=== PATIENT | female | born 1960 | race African-American/Black ===

== ENCOUNTER 2018-06-20 10:49 | Outpatient (CLI) | payer MEDICARE ==
--- NOTE | 2018-06-20 12:52 | CT ---
CT CERVICAL SPINE: Multiple axial tomograms are obtained through the cervical spine with multiplanar reconstruction. INDICATION: Neck pain. Cervical spondylosis. Pain to both shoulders. FINDINGS: There are moderately severe degenerative changes throughout the cervical spine below the C3 level. T here is anterior wedging of C3, C4, C5, and C6 vertebrae with prominent anterior osteophytes. Loss o f disk space throughout the cervical levels with vacuum phenomenon seen at several disk levels. Ther e is a gas pocket seen anteriorly at C3-4 indicating protrusion anteriorly from the disk space. At the C3-4 level posteriorly, there is a mild posterior listhesis of C3 on C4 with prominent posteri or spondylosis compressing and flattening the cord. Bilateral foraminal narrowing due to hypertrophi c change. At C4-5, prominent posterior bony spondylosis severely compresses the cord. There is severe central canal stenosis and cord compression at this level. Mild bilateral foraminal narrowing. At C5-6, there is abnormal bony spondylosis along the posterior border of the C5 vertebra with cot assembler ior spondylosis of the C5-6 disk. This bony spur posterior to the C5 vertebra compresses the anterio r cord. At the C5-6 disk level, disk bulge and spondylosis compress the cord with prominent spur bethanie trally. Bilateral foraminal narrowing. At C6-7, bony spondylosis compresses the cord. Bilateral foraminal narrowing more severe on the left . At C7-T1, mild spondylosis. IMPRESSION: Severe degenerative changes of the cervical spine with posterior bony spondylosis compressing the cor d at C3-4, C4-5, C5-6, and C6-7 levels. Findings appear most severe at the C4-5 level with severe co rd compression. POS: [facility]IGO
== END 2018-06-20 10:50 | disposition home or self-care (01) ==
LOC: TBSIIMAG 10:49
PROVIDERS: ATTEND Neurological Surgery
DX: M47.812 Spondylosis without myelopathy or radiculopathy, cervical region (principal); G95.20 Unspecified cord compression
CPT/HCPCS: 72125

== ENCOUNTER 2018-07-07 20:33 | Inpatient (IN) | payer MEDICARE ==
[2018-07-07] MEDS ORDERED: Milk Of Magnesia 30 ML UDCUP PO PRN (21:44)
[2018-07-07] MEDS ORDERED: traMADol HCl 50 MG TAB PO PRN (21:44)
[2018-07-07] MEDS ORDERED: Promethazine 25 MG TAB PO PRN (21:44)
[2018-07-07] MEDS ORDERED: diphenhydrAMINE 50 MG/ML VIAL IVP PRN (21:44)
[2018-07-07] MEDS ORDERED: Meperidine HCl/PF 25 MG/ML VIAL SLOW IVP PRN (21:44)
[2018-07-07] MEDS ORDERED: Cyclobenzaprine 10 MG TAB PO PRN (21:44)
[2018-07-07] MEDS ORDERED: Ondansetron PF 4 MG/2 ML Vial IVP PRN (21:44)
[2018-07-07] MEDS ORDERED: tiZANidine HCl 4 MG TAB PO PRN (21:44)
[2018-07-07] MEDS ORDERED: HYDROcodone/Acetaminophen 10/325 mg Tablet PO PRN (21:44)
[2018-07-07] MEDS ORDERED: Mag-Al 1200 mg/1200 mg/30 ML UDCUP PO PRN (21:44)
[2018-07-07 22:00] LABS: #Lymphocytes 2.4 thou/uL (1.20-3.40); #Monocytes 0.1 thou/uL (0.11-0.59); #Neutrophils 5.1 thou/uL (1.40-6.50); %Basophils 0.1 % (0.0-1.0); %Eosinophils 0.2 % (0.0-10.0); %Lymphocytes 31.3 % (21.0-51.0); %Monocytes 0.6 % (0.0-10.0); %Neutrophils 67.8 % (42.0-75.0); Hemoglobin 14.5 g/dL (12.0-16.0); Mean Corpuscular Hemoglobin 31.2 pg (27.0-31.0); Mean Corpuscular Volume 91.9 fL (78.0-98.0); Platelet Count 366 thou/uL (130-400); RBC Distribution Width 12.2 % (11.5-14.5); Red Blood Cell (RBC) Count 4.65 mill/uL (4.20-5.40); White Blood Cell (WBC) Count 7.6 thou/uL (4.8-10.8)
[2018-07-07 22:05] LABS: PTT 28.6 SEC (22.9-36.1); Prothrombin Time 13.5 SEC (12.0-14.7)
[2018-07-07 22:19] LABS: ALT (SGPT) 12 U/L (8-55); AST (SGOT) 15 U/L (5-34); Albumin 4.4 g/dL (3.5-5.0); Alkaline Phosphatase 78 U/L (40-150); Anion Gap 13 mmol/L (10-20); BUN (Urea Nitrogen) 9 mg/dL (9.8-20.1); Bilirubin, Total 0.3 mg/dL (0.2-1.2); Calc. Creatinine Clearance 0 mL/min (70-130); Calcium 9.9 mg/dL (7.8-10.44); Carbon Dioxide 26 mmol/L (22-29); Chloride 104 mmol/L (98-107); Estimated GFR-MDRD 78; Glucose 159 mg/dL (70-105); Potassium 3.3 mmol/L (3.5-5.1); Protein, Total 8.4 g/dL (6.0-8.3); Sodium 140 mmol/L (136-145)
[2018-07-07] MEDS ORDERED: Lorazepam 2 MG/ML VIAL ONE (22:20)
[2018-07-07 22:53] LABS: Bilirubin Negative (Negative); Blood, Urine Small (Negative); Clarity CLEAR (Clear); Glucose, Urine (Dipstick) Negative (Negative); Leukocyte Negative (Negative); Nitrite Negative (Negative); Protein, Urine (Dipstick) 100 mg/dL (Neg-Trace); Specific Gravity, Urine 1.012 (1.002-1.036)
[2018-07-07 22:56] LABS: Bacteria/HPF None Seen HPF (None Seen); Hyaline Casts/LPF 0-3 HYALINE CAST LPF (0-3 Hyaline); Pathc Cast-AUWi Flag 0.58 (0-2.49); Squamous Epithelial 0-3 HPF (0-3); WBC/HPF 0-3 HPF (0-3)
[2018-07-07 23:05] LABS: Yeast-All Forms 1+ HPF (None Seen)
--- NOTE | 2018-07-08 | MRI ---
MRI CERVICAL SPINE WITHOUT CONTRAST: History: Cervical stenosis. Comparison: None. Correlation: CT cervical spine 06-20-18. FINDINGS: Appropriate T1 marrow signal intensity of the cervical vertebra. Cervical spine vertebral body height is maintained. There is no fracture. Minimal STIR hyperintensity involving the left aspect of C4, li shubham representing mild edema from degenerative change. There is 3.2 mm of anterolisthesis of C2 upon C3. Slight reversal of the cervical lordosis at C3-4 and C4-5. Visualized brain parenchyma is unremarkable. There is subtle T2 and STIR hyperintensity involving the cervical cord at C3, C4, and C5. C2-3: Central disc osteophyte complex. Mild central canal stenosis. Mild bilateral foraminal narrowin g. C3-4: Broad based disc osteophyte complex. Severe central canal stenosis. Moderate to severe bilatera l foraminal narrowing. C4-5: Broad based disc osteophyte complex. Severe central canal stenosis. Moderate bilateral foramina l narrowing. C5-6: Broad based disc osteophyte complex. Moderate to severe central canal stenosis. Moderate to sev ere bilateral foraminal narrowing. C6-7: Broad based disc osteophyte complex. Moderate central canal stenosis. Moderate bilateral forami nal narrowing. C7-T1: No significant central canal stenosis. Mild bilateral foraminal narrowing. IMPRESSION: Severe central canal stenosis as well as moderately severe central canal stenosis involving the cervi albert spine as described above. There is significant mass effect and deformity of the cervical cord at C3-4, C4-5, C5-6 and to a lesser extent, C6-7. Abnormal signal intensity in the cord at C3-4, C4-5, C 5-6. Findings are presumed to be the malacic change of the cord. POS: NABIL
--- NOTE | 2018-07-08 00:13 | HP ---
ADDITIONAL ATTENDING PHYSICIAN: Brandon Chatman MD HISTORY OF PRESENT ILLNESS: The patient is a 58-year-old female with a past medical history of hypertension, hyperlipidemia, type 2 diabetes, asthma, anxiety, who is known to the Neurosurgical Service for recent evaluation for cervical myelopathy and found to have significant cervical stenosis from C3-C5 by Dr. Felipe and Brandon Lewis. They had planned for surgical decompression at C3-C5 on 07/22/2017, however, the patient reported that she had new episodes of incontinence which prompted her assessment at the [facility] this evening. The patient reports over the last few days, she has had several episodes of urinary incontinence. She reports she feels the need to go, but is unable to hold it for longer than a few seconds. She is still ambulating with a walker throughout her home. With regard to her other symptoms, the patient has had progressive numbness, tingling, dysesthesias to the arms and legs, arms greater than legs for the past year. She has also had progressive decline in the functional use of her hands bilaterally. She has had frequent falls and is essentially using a walker at all times for ambulation. The patient was transferred from [facility] for these symptoms and new symptoms of incontinence. She denies any bowel incontinence. PAST MEDICAL HISTORY: Hypertension, hyperlipidemia, type 2 diabetes, asthma, anxiety. PAST SURGICAL HISTORY: Colonoscopy, left knee replacement, tubal ligation, x2, cholecystectomy. ALLERGIES: THE PATIENT IS ALLERGIC TO PENICILLIN. SOCIAL HISTORY: She is a former smoker. She does not currently smoke, drink, or use any drugs. PHYSICAL EXAMINATION: VITAL SIGNS: BP is 161/80, pulse 54, respiration rate is 21. She is 100% on room air. CONSTITUTIONAL: Awake, alert, no acute distress. HEENT: Head, normocephalic, atraumatic. Eyes, PERRLA. Extraocular movements intact. ENT; oral mucosa is pink, intact and moist. The patient has normal voice. NECK: Nontender to palpation. Free active range of motion. No meningismus or nuchal rigidity. CARDIAC: Regular rate and rhythm. RESPIRATORY: Symmetric chest expansion. No evidence of dyspnea. MUSCULOSKELETAL: She has good muscle tone to bilateral upper extremities. She does have some weakness to bilateral sales property manager. She has 5/5 strength in the remainder of the extremities during my exam in the bed. She is hyperreflexive of both the triceps, biceps, knee and ankle jerk reflex. Positive Hernández's. Positive on sustained clonus. NEUROLOGIC: A and O x4. The patient does have slight weakness to bilateral sales property manager strength in the hands, 4-/5. I did not attempt to ambulate the patient considering her fall risk. ASSESSMENT AND PLAN: This is a 58-year-old female, known to Neurosurgery for recent evaluation for cervical stenosis with cervical myelopathy with new symptoms of urinary incontinence. She was transferred to our facility for further management of progression of these symptoms. I will plan to evaluate the symptoms further with new MRI of the cervical and lumbar spine without contrast. She has also been treated with 10 mg of Decadron prior to arrival and will continue Decadron 4 mg q.6h. Considering her additional underlying medical issues including hypertension, hyperlipidemia and diabetes, we will ask Medical Service to assist with medical management. I have discussed this plan with Dr. Chatman, who is in agreement, and he will also see the patient. Job ID: [id number] [facility]
[2018-07-08] MEDS ORDERED: HYDROcodone/Acetaminophen 7.5/325 mg Tablet ONE (00:18)
[2018-07-08] MEDS: Sodium Chloride 0.9% 1,000 ML IV SCH ×2 (02:47→17:23)
[2018-07-08] MEDS: Dexamethasone 4 mg/ml Vial SLOW IVP SCH ×3 (02:47→06:55)
[2018-07-08 04:08] VITALS: BMI 42.1
[2018-07-08] MEDS ORDERED: HYDROcodone/Acetaminophen 10/325 mg Tablet PO PRN (07:29)
[2018-07-08] MEDS ORDERED: Loratadine 10 MG TAB PO PRN (07:30)
[2018-07-08] MEDS ORDERED: Artificial Tears 18 DROP/0.9 ML EA EYE PRN (07:30)
[2018-07-08] MEDS ORDERED: Senokot S 8.6-50 MG TAB PO PRN (07:30)
[2018-07-08] MEDS ORDERED: Zolpidem Tartrate 5 MG TAB PO PRN (07:30)
[2018-07-08] MEDS ORDERED: Eucerin (Mineral Oil/Petrolatum,White) 30 gm Jar TOP PRN (07:30)
[2018-07-08] MEDS ORDERED: Dextrose 50% Abboject 50 ML SYRINGE SLOW IVP PRN (07:30)
[2018-07-08] MEDS ORDERED: Dextrose 5% in Water 1,000 ML IV PRN (07:30)
[2018-07-08] MEDS ORDERED: Bisacodyl 10 MG SUPP PR PRN (07:30)
[2018-07-08] MEDS ORDERED: HumaLOG 300 UNITS/3 ML VIAL SC PRN ×2 (07:30)
[2018-07-08] MEDS ORDERED: Acetaminophen 500 MG TAB PO PRN (07:30)
[2018-07-08] MEDS ORDERED: Cepastat Lozenges 1 LOZ PO PRN (07:30)
[2018-07-08] MEDS ORDERED: Loperamide HCl 2 MG CAP PO PRN (07:30)
[2018-07-08] MEDS ORDERED: Calcium Carbonate 500 MG ChewTAB PO PRN (07:30)
[2018-07-08] MEDS ORDERED: Diabetic Tussin 200 MG/10 ML UDCUP PO PRN (07:30)
[2018-07-08] MEDS ORDERED: hydrALAZINE 20 MG/ML VIAL SLOW IVP PRN (07:30)
[2018-07-08] MEDS ORDERED: Labetalol HCl 100 MG/20 ML VIAL SLOW IVP PRN (07:30)
[2018-07-08] MEDS ORDERED: Sodium Chloride 0.65% Nasal 44 ML BOT EA NARE PRN (07:30)
--- NOTE | 2018-07-08 08:02 | MRI ---
MRI LUMBAR SPINE WITHOUT CONTRAST: HISTORY: The patient fell 2 days ago. Pain and weakness. COMPARISON: None. FINDINGS: Appropriate T1 marrow signal intensity of the lumbar vertebrae. Lumbar spine vertebral body height i s maintained and there is no fracture. No significant STIR hyperintensity to suggest vertebral body edema or ligamentous injury. There is nonspecific edema involving the midline dorsal subcutaneous fat. Symmetric signal intensity of the psoas muscles. Exophytic T2 hyperintense lesion emanating from the left renal cortex measuring 2 cm likely represents a cyst. Conus medullaris terminates at the T12-L1 disk space level. T12-L1: Adequate disk hydration. No significant central canal stenosis or foraminal narrowing. L1-L2: Adequate disk hydration. No significant central canal stenosis or foraminal narrowing. L2-L3: Adequate disk hydration. No significant central canal stenosis or foraminal narrowing. L3-L4: Desiccation with mild loss of disk space height. Generalized disk bulge, ligamentum flavum t hickening, and facet hypertrophy result in mild central canal stenosis. There is a small amount of f luid in both facet joints. Right neural foramen is patent. Mild left neural foraminal narrowing. L4-L5: Desiccation with mild loss of disk space height. Generalized disk bulge, ligamentum flavum t hickening, and facet hypertrophy result in moderate to severe central canal stenosis. There is fluid in both facet joints. Moderate to severe bilateral neural foraminal narrowing. L5-S1: Desiccation with moderate loss of disk space height. Moderate disk bulge, ligamentum flavum thickening, and facet hypertrophy result in mild to moderate central canal stenosis. There is narrow ing of both subarticular zones with obscuration of bilateral traversing S1 nerve roots. There is ayana ateral facet hypertrophy. Moderate to severe bilateral foraminal narrowing. IMPRESSION: 1. No evidence of fracture. 2. Degenerative change of the lumbar spine as detailed above. POS: [facility]
[2018-07-08] MEDS: Hydrochlorothiazide 25 MG TAB PO SCH (09:14)
[2018-07-08] MEDS: Citalopram 20 MG TAB PO SCH (09:14)
[2018-07-08] MEDS: metFORMIN XR 500 MG TAB PO SCH ×2 (09:15→17:23)
[2018-07-08] MEDS: HYDROcodone/Acetaminophen 10/325 mg Tablet PO PRN ×3 (09:21→21:23)
[2018-07-08] MEDS: ALPRAZolam 1 MG TAB PO PRN ×2 (09:24→21:23)
--- NOTE | 2018-07-08 11:06 | PDOC.PN ---
- Subjective Encounter Start Date: 07/08/18 Encounter Start Time: 07:50 Patient seen and examined. No new complaints. No overnight events - Objective Resuscitation Status - Order Detail: 07/08/18 08:08 Resuscitation Status Routine Resuscitation Status: FULL: Full Resuscitation MAR Reviewed: Yes Vital Signs & Weight: Vital Signs (12 hours) Temp Pulse Resp BP BP Pulse Ox 07/08/18 09:14 62 150/82 H 07/08/18 09:13 150/82 H 07/08/18 08:05 99.9 F H 62 18 150/82 H 95 07/08/18 07:00 98 07/08/18 01:50 98.1 F 69 20 177/71 H 98 Weight Weight 253 lb 6 oz I&O: 07/07/18 07/08/18 07/09/18 06:59 06:59 06:59 Intake Total 540 Balance 540 Result Diagrams: 07/07/18 21:42 07/07/18 21:42 Additional Labs: Accuchecks 07/08/18 06:55 POC Glucose 155 H Radiology Reviewed by me: Yes (MRI cervical and lumba spine noted) Phys Exam - Physical Examination Constitutional: NAD HEENT: PERRLA, moist MMs, sclera anicteric Neck: no JVD, supple Respiratory: no wheezing, no rales, no rhonchi Cardiovascular: RRR, no significant murmur, no rub Gastrointestinal: soft, non-tender, no distention, positive bowel sounds Musculoskeletal: no edema, pulses present Neurological: non-focal, normal sensation Lymphatic: no nodes Psychiatric: normal affect, A&O x 3 Skin: no rash, normal turgor Dx/Plan (1) Cervical myelopathy with cervical radiculopathy Code(s): M47.12 - OTHER SPONDYLOSIS WITH MYELOPATHY, CERVICAL REGION Status: Acute (2) Hypokalemia Code(s): E87.6 - HYPOKALEMIA Status: Acute (3) Anxiety and depression Code(s): F41.9 - ANXIETY DISORDER, UNSPECIFIED; F32.9 - MAJOR DEPRESSIVE DISORDER, SINGLE EPISODE, UNSPECIFIED Status: Chronic (4) Diabetes type 2, controlled Code(s): E11.9 - TYPE 2 DIABETES MELLITUS WITHOUT COMPLICATIONS Status: Chronic (5) Dyslipidemia Code(s): E78.5 - HYPERLIPIDEMIA, UNSPECIFIED Status: Chronic (6) HTN (hypertension) Code(s): I10 - ESSENTIAL (PRIMARY) HYPERTENSION Status: Chronic Qualifiers: (7) Morbid obesity with BMI of 40.0-44.9, adult Code(s): E66.01 - MORBID (SEVERE) OBESITY DUE TO EXCESS CALORIES; Z68.41 - BODY MASS INDEX (BMI) 40.0-44.9, ADULT Status: Chronic - Plan cont current plan of care, plan discussed w/ family, PT/OT * medication reviewed as below * symptomatic treatment * code status- full code * home medication reconciled * may need surgery for cervical stenosis * discussed with family * replace potassium * will follow * at this point medically stable. Review of Systems - Review of Systems Eyes: negative: Pain, Vision Change, Conjunctivae Inflammation, Eyelid Inflammation, Redness, Other ENT: negative: Ear Pain, Ear Discharge, Nose Pain, Nose Discharge, Nose Congestion, Mouth Pain, Mouth Swelling, Throat Pain, Throat Swelling, Other Respiratory: negative: Cough, Dry, Shortness of Breath, Hemoptysis, SOB with Excertion, Pleuritic Pain, Sputum, Wheezing Cardiovascular: negative: chest pain, palpitations, orthopnea, paroxysmal nocturnal dyspnea, edema, light headedness, other Gastrointestinal: negative: Nausea, Vomiting, Abdominal Pain, Diarrhea, Constipation, Melena, Hematochezia, Other Genitourinary: negative: Dysuria, Frequency, Incontinence, Hematuria, Retention , Other Musculoskeletal: Neck Pain. negative: Shoulder Pain, Arm Pain, Back Pain, Hand Pain, Leg Pain, Foot Pain, Other Skin: negative: Rash, Lesions, Chava, Bruising, Other - Medications/Allergies Allergies/Adverse Reactions: Allergies Allergy/AdvReac Type Severity Reaction Status Date / Time Penicillins Allergy Verified 01/23/17 12:30 Medications: Current Medications Acetaminophen (Tylenol) 500 mg PO Q6H PRN PRN Reason: Mild Pain (1-3) Hydrocodone Bitart/Acetaminophen ([place] 10/325) 1 tab PO Q4H PRN PRN Reason: Mild Pain (1-3) Last Admin: 07/08/18 09:21 Dose: 1 tab Hydrocodone Bitart/Acetaminophen ([place] 10/325) 2 tab PO Q4H PRN PRN Reason: Moderate Pain (4-6) Alprazolam (Xanax) 1 mg PO TIDPRN PRN PRN Reason: Anxiety Last Admin: 07/08/18 09:24 Dose: 1 mg Artificial Tears (Tears Naturale) 2 drop EA EYE PRN PRN PRN Reason: Dry Eyes Atorvastatin Calcium (Lipitor) 10 mg PO [facility] Benazepril HCl (Lotensin) 40 [facility] Last Admin: 07/08/18 09:13 Dose: 40 mg Bisacodyl (Dulcolax) 10 mg RI DAILYPRN PRN PRN Reason: Constipation Calcium Carbonate (Tums) 1,000 mg PO Q4H PRN PRN Reason: Heartburn or Indigestion Citalopram Hydrobromide (Celexa) 40 mg PO [facility] Last Admin: 07/08/18 09:14 Dose: 40 mg Clonidine (Catapres) 0.3 mg PO [facility] Cyclobenzaprine HCl (Flexeril) 10 mg PO Q8H PRN PRN Reason: Muscle Spasm Dextrose/Water (Dextrose 50%) 25 gm SLOW IVP PRN PRN PRN Reason: Hypoglycemia Diltiazem HCl (Cardizem Cd) 120 mg PO TID [facility] Last Admin: 07/08/18 09:14 Dose: 120 mg Diphenhydramine HCl (Benadryl) 25 mg IVP Q6H PRN PRN Reason: Itching Glucagon (Glucagon) 1 mg IM PRN PRN PRN Reason: Hypoglycemia Guaifenesin (Robitussin Sf) 200 mg PO Q4H PRN PRN Reason: Cough Hydralazine HCl (Apresoline) 10 mg SLOW IVP Q4H PRN PRN Reason: SBP > 180 and HR < 70 Hydrochlorothiazide (Hydrochlorothiazide) 25 mg PO [facility] Last Admin: 07/08/18 09:14 Dose: 25 mg Sodium Chloride (Normal Saline 0.9%) 1,000 mls @ 75 mls/hr IV .[id number] [facility] Last Admin: 07/08/18 02:47 Dose: 1,000 mls Dextrose/Water (D5w) 1,000 mls @ 0 mls/hr IV .Q0M PRN PRN Reason: Hypoglycemia Insulin Human Lispro (Humalog) 0 units SC .MODERATE SLIDING SC PRN PRN Reason: Moderate Correctional Scale Insulin Human Lispro (Humalog) 0 units SC .BEDTIME SLIDING SC PRN PRN Reason: Bedtime Correctional Scale Labetalol HCl (Normodyne) 20 mg SLOW IVP Q4H PRN PRN Reason: SBP > 180 and HR >/= 70 Loperamide HCl (Imodium) 2 mg PO PRN PRN PRN Reason: Diarrhea/Loose Stools Loratadine (Claritin) 10 mg PO DAILYPRN PRN PRN Reason: Sinus Symptoms Meperidine HCl (Demerol) 25 mg SLOW IVP Q2H PRN PRN Reason: Moderate Breakthrough Pain Metformin HCl (Glucophage Xr) 500 mg PO [facility]ID[facility] Last Admin: 07/08/18 09:15 Dose: 500 mg Mineral Oil/White Petrolatum (Eucerin Cream) 0 gm TOP BIDPRN PRN PRN Reason: Dry Skin Ondansetron HCl (Zofran) 4 mg IVP Q6H PRN PRN Reason: Nausea Promethazine HCl (Phenergan) 12.5 mg PO Q4H PRN PRN Reason: Nausea/Vomiting Senna/Docusate Sodium (Senokot S) 2 tab PO BID PRN PRN Reason: Constipation Sodium Chloride (Flush - Normal Saline) 10 ml IVF PRN PRN PRN Reason: Saline Flush Sodium Chloride ([employer] 0.65%) 0 ml EA NARE QIDPRN PRN PRN Reason: Nasal Congestion Throat Lozenges (Cepastat Lozenges) 1 evonne PO Q2H PRN PRN Reason: Sore Throat Tizanidine HCl (Zanaflex) 4 mg PO Q6H PRN PRN Reason: Muscle Spasm Zolpidem Tartrate (Ambien) 5 mg PO HSPRN PRN PRN Reason: Insomnia
[2018-07-08] MEDS ORDERED: Potassium Chloride 20 MEQ TAB PO SCH (11:15)
--- NOTE | 2018-07-08 16:31 | PRG ---
DATE OF SERVICE: 07/08/2018 SUBJECTIVE: The patient is seen and examined. I agree with Isabel Camejo's evaluation on 07/07/2018. The patient is a 58-year-old woman, who has seen Dr. Felipe this month for cervical myelopathy that has been progressive. He had planned on cervical decompression on the 22 of July. The patient was stable at home, but had feelings of urinary frequency and urgency, and this ultimately prompted emergency room evaluation in her hometown and then transferred here. Based on her physical exam and current history, there does not appear to be any meaningful neurologic change in her condition. The urinary issues have resolved and I think they are more explained by her poor ambulation. We did repeat an MRI scan, which again confirmed the severe spinal cord compression between C3 and C6. IMPRESSION AND PLAN: The patient certainly has progressive and severe cervical myelopathy and cervical stenosis that will require surgical decompression. I am not convinced there has been any acute or dramatic change, but the patient is quite anxious about the situation and wants to expedite surgical management. It is my opinion that surgical decompression would best be accomplished by anterior and posterior decompression and stabilization from C3 through C6 and I discussed the indication, risks, benefits, alternatives of the procedure with the patient and with her sister via telephone. They expressed understanding and wished to proceed. We will work to coordinate timing, which will undoubtedly be somewhat delayed given the holiday week. Job ID: [id number]
[2018-07-08] MEDS ORDERED: Atorvastatin Calcium 10 MG TAB PO SCH (21:00)
[2018-07-08] MEDS ORDERED: cloNIDine 0.3 MG TAB PO SCH (21:00)
[2018-07-09 08:48] VITALS: BP 177/81; TEMP 98
--- NOTE | 2018-07-09 08:50 | DIS ---
DATE OF ADMISSION: 07/07/2018 DATE OF DISCHARGE: 07/09/2018 HOSPITAL COURSE: The patient is a 58-year-old female, recently evaluated by Neurosurgery for cervical stenosis and cervical myopathy, most pronounced from C3 through C6. She was transferred to our facility for concern for worsening of her cervical myelopathy with neurologic change. She was evaluated by us at [facility] with repeat MRIs and as well as treated initially with steroids. Dr. Chatman also assessed the patient, felt that her new symptoms of urinary urgency did not recommend any acute neurologic change. She remains able to ambulate with short distances with her walker. I am visiting with patient this morning at bedside. She is awake, alert, in no acute distress. She has free active range of motion of all extremities. 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 We will plan to dismiss the patient to home. We will arrange out for the patient C3-C6 anterior-posterior decompression and fusion, likely planned for 07/15/2018. I have provided the patient with scripts for Tylenol No. 3 and Zanaflex to take as needed. We will call her to arrange for the surgical intervention. Job ID: [id number]
[2018-07-09] MEDS: Citalopram 20 MG TAB PO SCH (09:10)
[2018-07-09] MEDS: Hydrochlorothiazide 25 MG TAB PO SCH (09:11)
[2018-07-09] MEDS: metFORMIN XR 500 MG TAB PO SCH (09:12)
[2018-07-09] MEDS: HYDROcodone/Acetaminophen 10/325 mg Tablet PO PRN (09:12)
[2018-07-09] MEDS: ALPRAZolam 1 MG TAB PO PRN (09:19)
--- NOTE | 2018-07-09 09:32 | PDOC.PN ---
- Subjective Encounter Start Date: 07/09/18 Encounter Start Time: 07:50 -: old records requested/rev Patient seen and examined. No new complaints. No overnight events - Objective Resuscitation Status - Order Detail: 07/08/18 08:08 Resuscitation Status Routine Resuscitation Status: FULL: Full Resuscitation MAR Reviewed: Yes Vital Signs & Weight: Vital Signs (12 hours) Temp Pulse Resp BP BP Pulse Ox 07/09/18 09:11 53 L 177/81 H 07/09/18 09:10 177/82 H 07/09/18 08:02 98 F 53 L 22 H 177/81 H 98 07/09/18 08:00 98 07/09/18 04:39 98.1 F 91 18 146/105 H 97 07/09/18 00:29 98.1 F 56 L 18 181/77 H 93 L Weight Weight 253 lb 6 oz I&O: 07/08/18 07/09/18 07/10/18 06:59 06:59 06:59 Intake Total 1630 Balance 1630 Result Diagrams: 07/07/18 21:42 07/07/18 21:42 Additional Labs: Accuchecks 07/09/18 07/08/18 07/08/18 05:31 21:20 15:37 POC Glucose 144 H 170 H 214 H 07/08/18 11:33 POC Glucose 224 H Phys Exam - Physical Examination Constitutional: NAD HEENT: PERRLA, moist MMs, sclera anicteric Neck: no JVD, supple Respiratory: no wheezing, no rales, no rhonchi Cardiovascular: RRR, no significant murmur, no rub Gastrointestinal: soft, non-tender, no distention, positive bowel sounds Musculoskeletal: no edema, pulses present Neurological: non-focal, normal sensation, moves all 4 limbs Lymphatic: no nodes Psychiatric: normal affect, A&O x 3 Skin: no rash, normal turgor Dx/Plan (1) Cervical myelopathy with cervical radiculopathy Code(s): M47.12 - OTHER SPONDYLOSIS WITH MYELOPATHY, CERVICAL REGION Status: Acute (2) Hypokalemia Code(s): E87.6 - HYPOKALEMIA Status: Acute (3) Anxiety and depression Code(s): F41.9 - ANXIETY DISORDER, UNSPECIFIED; F32.9 - MAJOR DEPRESSIVE DISORDER, SINGLE EPISODE, UNSPECIFIED Status: Chronic (4) Diabetes type 2, controlled Code(s): E11.9 - TYPE 2 DIABETES MELLITUS WITHOUT COMPLICATIONS Status: Chronic (5) Dyslipidemia Code(s): E78.5 - HYPERLIPIDEMIA, UNSPECIFIED Status: Chronic (6) HTN (hypertension) Code(s): I10 - ESSENTIAL (PRIMARY) HYPERTENSION Status: Chronic Qualifiers: (7) Morbid obesity with BMI of 40.0-44.9, adult Code(s): E66.01 - MORBID (SEVERE) OBESITY DUE TO EXCESS CALORIES; Z68.41 - BODY MASS INDEX (BMI) 40.0-44.9, ADULT Status: Chronic - Plan cont current plan of care * medication reviewed as below * symptomatic treatment * plan for discharge and outpt elective admission for surgery * medically stable * will sign off. Review of Systems - Review of Systems Constitutional: negative: fever, chills, sweats, weakness, malaise, other Eyes: negative: Pain, Vision Change, Conjunctivae Inflammation, Eyelid Inflammation, Redness, Other ENT: negative: Ear Pain, Ear Discharge, Nose Pain, Nose Discharge, Nose Congestion, Mouth Pain, Mouth Swelling, Throat Pain, Throat Swelling, Other Respiratory: negative: Cough, Dry, Shortness of Breath, Hemoptysis, SOB with Excertion, Pleuritic Pain, Sputum, Wheezing Cardiovascular: negative: chest pain, palpitations, orthopnea, paroxysmal nocturnal dyspnea, edema, light headedness, other Gastrointestinal: negative: Nausea, Vomiting, Abdominal Pain, Diarrhea, Constipation, Melena, Hematochezia, Other Genitourinary: negative: Dysuria, Frequency, Incontinence, Hematuria, Retention , Other Musculoskeletal: negative: Neck Pain, Shoulder Pain, Arm Pain, Back Pain, Hand Pain, Leg Pain, Foot Pain, Other Skin: negative: Rash, Lesions, Chava, Bruising, Other Neurological: negative: Weakness, Numbness, Incoordination, Change in Speech, Confusion, Seizures, Other - Medications/Allergies Allergies/Adverse Reactions: Allergies Allergy/AdvReac Type Severity Reaction Status Date / Time Penicillins Allergy Verified 01/23/17 12:30 Medications: Current Medications Acetaminophen (Tylenol) 500 mg PO Q6H PRN PRN Reason: Mild Pain (1-3) Hydrocodone Bitart/Acetaminophen ([place] 10/325) 1 tab PO Q4H PRN PRN Reason: Mild Pain (1-3) Last Admin: 07/09/18 09:12 Dose: 1 tab Hydrocodone Bitart/Acetaminophen ([place] 10/325) 2 tab PO Q4H PRN PRN Reason: Moderate Pain (4-6) Alprazolam (Xanax) 1 mg PO TIDPRN PRN PRN Reason: Anxiety Last Admin: 07/09/18 09:19 Dose: 1 mg Artificial Tears (Tears Naturale) 2 drop EA EYE PRN PRN PRN Reason: Dry Eyes Atorvastatin Calcium (Lipitor) 10 mg PO [facility] Last Admin: 07/08/18 21:18 Dose: 10 mg Benazepril HCl (Lotensin) 40 mg PO [facility] Last Admin: 07/09/18 09:10 Dose: 40 mg Bisacodyl (Dulcolax) 10 mg [place] DAILYPRN PRN PRN Reason: Constipation Calcium Carbonate (Tums) 1,000 mg PO Q4H PRN PRN Reason: Heartburn or Indigestion Citalopram Hydrobromide (Celexa) 40 mg PO [facility] Last Admin: 07/09/18 09:10 Dose: 40 mg Clonidine (Catapres) 0.3 mg PO [facility] Last Admin: 07/08/18 21:18 Dose: 0.3 mg Cyclobenzaprine HCl (Flexeril) 10 mg PO Q8H PRN PRN Reason: Muscle Spasm Last Admin: 07/08/18 21:23 Dose: 10 mg Dextrose/Water (Dextrose 50%) 25 gm SLOW IVP PRN PRN PRN Reason: Hypoglycemia Diltiazem HCl (Cardizem Cd) 120 mg PO TID [facility] Last Admin: 07/09/18 09:11 Dose: 120 mg Diphenhydramine HCl (Benadryl) 25 mg IVP Q6H PRN PRN Reason: Itching Glucagon (Glucagon) 1 mg IM PRN PRN PRN Reason: Hypoglycemia Guaifenesin (Robitussin Sf) 200 mg PO Q4H PRN PRN Reason: Cough Hydralazine HCl (Apresoline) 10 mg SLOW IVP Q4H PRN PRN Reason: SBP > 180 and HR < 70 Hydrochlorothiazide (Hydrochlorothiazide) 25 mg PO [facility] Last Admin: 07/09/18 09:11 Dose: 25 mg Sodium Chloride (Normal Saline 0.9%) 1,000 mls @ 75 mls/hr IV .[id number] [facility] Last Admin: 07/08/18 17:23 Dose: 1,000 mls Dextrose/Water (D5w) 1,000 mls @ 0 mls/hr IV .Q0M PRN PRN Reason: Hypoglycemia Insulin Human Lispro (Humalog) 0 units SC .MODERATE SLIDING SC PRN PRN Reason: Moderate Correctional Scale Insulin Human Lispro (Humalog) 0 units SC .BEDTIME SLIDING [place] PRN PRN Reason: Bedtime Correctional Scale Labetalol HCl (Normodyne) 20 mg SLOW IVP Q4H PRN PRN Reason: SBP > 180 and HR >/= 70 Loperamide HCl (Imodium) 2 mg PO PRN PRN PRN Reason: Diarrhea/Loose Stools Loratadine (Claritin) 10 mg PO DAILYPRN PRN PRN Reason: Sinus Symptoms Meperidine HCl (Demerol) 25 mg SLOW IVP Q2H PRN PRN Reason: Moderate Breakthrough Pain Metformin HCl (Glucophage Xr) 500 mg PO [facility]ID[facility] Last Admin: 07/09/18 09:12 Dose: 500 mg Mineral Oil/White Petrolatum (Eucerin Cream) 0 gm TOP BIDPRN PRN PRN Reason: Dry Skin Ondansetron HCl (Zofran) 4 mg IVP Q6H PRN PRN Reason: Nausea Promethazine HCl (Phenergan) 12.5 mg PO Q4H PRN PRN Reason: Nausea/Vomiting Senna/Docusate Sodium (Senokot S) 2 tab PO BID PRN PRN Reason: Constipation Sodium Chloride (Flush - Normal Saline) 10 ml IVF PRN PRN PRN Reason: Saline Flush Sodium Chloride ([place] Nasal [place] 0.65%) 0 ml EA NARE QIDPRN PRN PRN Reason: Nasal Congestion Throat Lozenges (Cepastat Lozenges) 1 evonne PO Q2H PRN PRN Reason: Sore Throat Tizanidine HCl (Zanaflex) 4 mg PO Q6H PRN PRN Reason: Muscle Spasm Last Admin: 07/09/18 09:19 Dose: 4 mg Zolpidem Tartrate (Ambien) 5 mg PO HSPRN PRN PRN Reason: Insomnia
--- NOTE | 2018-07-09 13:43 | DIS ---
DATE OF ADMISSION: 07/07/2018 DATE OF DISCHARGE: 07/09/2018 Please see discharge summary dictated by Isabel Camejo today for more detail. The patient was admitted under neurosurgeon. This patient found with a cervical stenosis, cervical myelopathy, and radiculopathy. Sound Team was consulted for medical comanagement. The patient's medical problems remained stable. We continued all her home medication while in hospital as well as on discharge. This patient is planned for outpatient surgery for her cervical stenosis and radiculopathy. The patient is planned for discharge by primary team. She will resume all her previous medication, and she will follow up with neurosurgeon as an as an outpatient basis. The patient is seen and examined at bedside today. Please see my progress note from today for further details. Job ID: [id number]
== END 2018-07-09 11:49 | disposition home or self-care (01) | DRG 552 ==
LOC: ERS 20:33 → SURG A 21:44
PROVIDERS: ADMIT Neurological Surgery; ATTEND Neurological Surgery
DX: M48.02 Spinal stenosis, cervical region (principal); G99.2 Myelopathy in diseases classified elsewhere; Z68.41 Body mass index [BMI] 40.0-44.9, adult; I10 Essential (primary) hypertension; E11.9 Type 2 diabetes mellitus without complications; E78.5 Hyperlipidemia, unspecified; J45.909 Unspecified asthma, uncomplicated; F41.9 Anxiety disorder, unspecified; R32 Unspecified urinary incontinence; E87.6 Hypokalemia; F32.9 Major depressive disorder, single episode, unspecified; E66.01 Morbid (severe) obesity due to excess calories; Z88.0 Allergy status to penicillin; Z87.891 Personal history of nicotine dependence; Z96.652 Presence of left artificial knee joint
CPT/HCPCS: 36415; 36416; 72141; 72148; 80053; 81001; 85025; 85610; 85730; 93005; 96374; G8978-GP-CK; G8979-GP-CI; J1100; J2060; J2175

== ENCOUNTER 2018-07-15 07:10 | Inpatient (IN) | payer MEDICARE ==
[2018-07-12 08:20] VITALS: BMI 41.5
[2018-07-15 10:01] LABS: #Basophils 0.1 thou/uL (0.0-0.2); #Eosinphils 0.3 thou/uL (0.0-0.7); #Monocytes 0.8 thou/uL (0.11-0.59); %Basophils 1.1 % (0.0-1.0); %Eosinophils 2.9 % (0.0-10.0); %Lymphocytes 44.4 % (21.0-51.0); %Monocytes 6.8 % (0.0-10.0); %Neutrophils 44.8 % (42.0-75.0); Mean Corpuscular HGB CONC 33.2 g/dL (32.0-36.0); Mean Corpuscular Hemoglobin 31.2 pg (27.0-31.0); Mean Corpuscular Volume 93.8 fL (78.0-98.0); Mean Platelet Volume 6.7 fL (7.4-10.4); Platelet Count 326 thou/uL (130-400); RBC Distribution Width 12.6 % (11.5-14.5); Red Blood Cell (RBC) Count 3.83 mill/uL (4.20-5.40); White Blood Cell (WBC) Count 11.2 thou/uL (4.8-10.8)
[2018-07-15] MEDS ORDERED: Levofloxacin 500 mg/D5W 100 ml Premix Bag ONE (10:10)
[2018-07-15] MEDS ORDERED: Clindamycin/D5W 900 mg/50 ml Premix Bag ONE (10:10)
[2018-07-15 10:26] LABS: Anion Gap 12 mmol/L (10-20); BUN (Urea Nitrogen) 12 mg/dL (9.8-20.1); Calc. Creatinine Clearance 108 mL/min (70-130); Carbon Dioxide 27 mmol/L (22-29); Chloride 104 mmol/L (98-107); Estimated GFR-MDRD 67; Glucose 110 mg/dL (70-105); Potassium 3.5 mmol/L (3.5-5.1); Sodium 139 mmol/L (136-145)
[2018-07-15] MEDS ORDERED: Bacitracin Zinc Ointment 30 gm TUBE ONE (12:44)
[2018-07-15] MEDS ORDERED: Sodium Chloride 0.9% 10 ML ONE (12:44)
[2018-07-15] MEDS ORDERED: Fentanyl 100 MCG/2 ML VIAL ONE ×4 (12:45→16:54)
[2018-07-15] MEDS ORDERED: PROPOFOL 200 MG/20 ML VIAL ONE (13:48)
[2018-07-15] MEDS ORDERED: Succinylcholine Chloride 20 MG/ML 10 ml SYRINGE FS ONE (13:48)
[2018-07-15] MEDS ORDERED: Dexamethasone 20 MG/5 ML VIAL ONE (13:48)
[2018-07-15] MEDS ORDERED: Lidocaine 1% PF 5 ML VIAL ONE (13:48)
[2018-07-15] MEDS ORDERED: Ketorolac Tromethamine 30 MG/ML VIAL ONE (13:48)
[2018-07-15] MEDS ORDERED: Ondansetron PF 4 MG/2 ML Vial ONE (13:48)
[2018-07-15] MEDS ORDERED: PHENYLEPHRINE-NS 100 MCG/ML 10 ML SYRINGE ONE (13:48)
[2018-07-15] MEDS ORDERED: Glycopyrrolate 0.2 MG/ML 5 ML SYRINGE ONE (13:48)
[2018-07-15] MEDS ORDERED: Promethazine HCl 25 MG/ML VIAL IM PRN ×2 (15:24→15:49)
[2018-07-15] MEDS ORDERED: Promethazine HCl 25 MG/ML VIAL SLOW IVP PRN (15:24)
[2018-07-15] MEDS ORDERED: Ondansetron HCl/PF 4 MG/2 ML Vial IVP PRN (15:24)
[2018-07-15] MEDS ORDERED: diphenhydrAMINE 50 MG/ML VIAL IVP PRN (15:49)
[2018-07-15] MEDS ORDERED: Promethazine 25 MG TAB PO PRN (15:49)
[2018-07-15] MEDS ORDERED: Mag-Al 1200 mg/1200 mg/30 ML UDCUP PO PRN (15:49)
[2018-07-15] MEDS ORDERED: Morphine 4 MG/ML VIAL SLOW IVP PRN ×2 (15:49→15:56)
[2018-07-15] MEDS ORDERED: Milk Of Magnesia 30 ML UDCUP PO PRN (15:49)
[2018-07-15] MEDS ORDERED: tiZANidine HCl 4 MG TAB PO PRN (15:49)
[2018-07-15] MEDS ORDERED: traMADol HCl 50 MG TAB PO PRN ×2 (15:49)
[2018-07-15] MEDS ORDERED: Promethazine HCl 12.5 MG SUPP PR PRN (15:49)
[2018-07-15] MEDS ORDERED: Ondansetron PF 4 MG/2 ML Vial IVP PRN (15:49)
--- NOTE | 2018-07-15 15:55 | OP ---
DATE OF PROCEDURE: 07/15/2018 LITIGATION SECRETARY: Karthikeyan. PROCEDURES PERFORMED: Anterior cervical diskectomy, C3-C6, interbody arthrodesis, anterior titanium instrumentation, demineralized bone matrix, local morselized autograft, C3-C6; posterior approach C3-C6, decompressive laminectomies, posterolateral arthrodesis, lateral mass screw instrumentation, demineralized bone matrix, and local morselized autograft. DESCRIPTION OF PROCEDURE: The patient was brought to the operating room and intubated. She was positioned supine with the head in modest extension on gel-filled donut. An incision was made exposing the right precervical area and dissected medial to the sternocleidomastoid muscle, identified the anterior cervical spinal, and the level was confirmed by x-ray. We debrided extensive anterior osteophytic disease and found that each affected disk was heavily calcified and there was really no recognizable disk space at any visualized level. We attempted to place distraction, but no distraction was able to be obtained using distraction pins. We next scraped out any remaining disk that we could for the purpose of interbody arthrodesis at each of the three levels. We did not attempt to place an intervertebral device at these level because there was no space for this. We next placed an anterior plate at C3, C4, C5, and C6 using two 14-mm screws at each level. Position was confirmed by x-ray. The wound was then extensively irrigated and maximum hemostasis was secured, and the wound was closed in anatomic layers over drains. The patient was then rolled in the prone position on gel-filled chest rolls with the head fixed in a July movable bulkhead installer in neutral position. A midline posterior cervical incision was made exposing C3 through C6 and the level was confirmed by x-ray. We performed complete C6, complete C5, complete C4, and inferior C3 laminectomy, completely decompressed the spinal cord at each affected level. Next, lateral mass screws were placed on the right at C3, C4, C5, and C6. The yue was secured between the screws connected by nuts, which were finally tightened. Combination of demineralized bone matrix and local morselized autograft was laid over the left lamina and posterolateral surfaces for the purpose of arthrodesis. Vancomycin powder was then applied and the wound was closed in anatomic layers. Job ID: [id number] [facility]
--- NOTE | 2018-07-15 17:17 | EKG ---
Test Reason : PREOP Blood Pressure : / mmHG Vent. Rate : 059 BPM Atrial Rate : 059 BPM P-R Int : 250 ms QRS Dur : 086 ms QT Int : 472 ms P-R-T Axes : 051 026 012 degrees QTc Int : 467 ms Sinus bradycardia with 1st degree A-V block Low voltage QRS When compared with ECG of 07-JUL-2018 21:00, (Unconfirmed) CA interval has increased Confirmed by DR. Mike LUNSFORD ([id number]) on 07/15/2018 5:16:44 PM Referred By: SIGRID Confirmed By:DR. Mike LUNSFORD
[2018-07-15] MEDS: Sodium Chloride 0.9% 1,000 ML IV SCH (18:02)
[2018-07-15] MEDS: HYDROcodone/Acetaminophen 10/325 mg Tablet PO PRN (20:47)
[2018-07-15] MEDS: Clindamycin/D5W 900 MG in Premix Bag 1 BAG IVPB SCH (22:14)
[2018-07-16] MEDS: HYDROcodone/Acetaminophen 10/325 mg Tablet PO PRN ×5 (00:34→20:16)
[2018-07-16] MEDS: Sodium Chloride 0.9% 1,000 ML IV SCH ×2 (05:11→20:15)
[2018-07-16] MEDS ORDERED: Acetaminophen/Codeine 30-300mg Tablet PO PRN (05:27)
[2018-07-16] MEDS: Clindamycin/D5W 900 MG in Premix Bag 1 BAG IVPB SCH ×3 (05:52→23:05)
--- NOTE | 2018-07-16 08:25 | PRG ---
DATE OF SERVICE: 07/16/2018 SUBJECTIVE: The patient is a 58-year-old woman status post anterior-posterior decompression and fusion for severe cervical stenosis and cervical myelopathy. Following the surgery, she was transitioned to the floor. She reports her pain has been well controlled with p.o. medications, she is tolerating a regular diet without significant dysphagia and is voiding appropriately. She does have some increased left-sided weakness since the surgery. She is very slow to mobilize and requires two patient assist just to get to the bedside commode. The patient is awake and alert, in no acute distress. She has free active range of motion on the right side and 5/5 right-sided strength. She is having some increased left-sided weakness, particularly with the left firewall administrator, which is 3+/5, and in the left leg dorsiflexion and plantar flexion, which is 3-/5. She has 4-/5 EHL on the left. Sensation is intact to light touch. Hyperreflexive throughout. SWETA drain is in place with only 50 mL out overnight. I have removed SWETA at the bedside this morning. The patient has significant cervical myelopathy with increased left-sided weakness since surgery. She will require inpatient rehabilitation. We will continue to work with her with Physical Therapy, Occupational Therapy. Case Management and rehab screen have been placed. Medical service is managing her medically. Job ID: [id number] [facility]
[2018-07-16] MEDS ORDERED: Dextrose 50% Abboject 50 ML SYRINGE SLOW IVP PRN (08:28)
[2018-07-16] MEDS: metFORMIN 500 MG TAB PO SCH ×2 (08:28→16:53)
[2018-07-16] MEDS ORDERED: Dextrose 5% in Water 1,000 ML IV PRN (08:28)
[2018-07-16] MEDS ORDERED: HumaLOG 300 UNITS/3 ML VIAL SC PRN (08:28)
[2018-07-16] MEDS: Citalopram 20 MG TAB PO SCH (08:29)
[2018-07-16] MEDS: Cyclobenzaprine 10 MG TAB PO PRN (08:32)
[2018-07-16] MEDS ORDERED: Hydrochlorothiazide 25 MG TAB PO SCH (09:00)
--- NOTE | 2018-07-16 15:56 | PDOC.PN ---
- Subjective Encounter Start Date: 07/16/18 Encounter Start Time: 12:00 Pt seen for management of medical comorbidities, including hypertension. Denies chest pain, shortness of breath, fevers or chills. - Objective Vital Signs & Weight: Vital Signs (12 hours) Temp Pulse Resp BP Pulse Ox 07/16/18 15:16 84 07/16/18 11:34 142/65 H 07/16/18 11:19 98.0 F 84 20 177/76 H 93 L 07/16/18 08:46 98 07/16/18 08:33 72 07/16/18 07:53 97.9 F 72 20 168/72 H 98 07/16/18 04:28 97.6 F 83 18 174/77 H 98 Weight Weight 250 lb I&O: 07/15/18 07/16/18 07/17/18 06:59 06:59 06:59 Output Total 50 Balance -50 Result Diagrams: 07/15/18 09:50 07/15/18 09:50 Additional Labs: Accuchecks 07/16/18 07/15/18 11:00 22:14 POC Glucose 208 H 214 H Phys Exam - Physical Examination Morbd obesity HEENT: moist MMs s/p surgery Respiratory: clear to auscultation bilateral Cardiovascular: RRR Gastrointestinal: soft Neurological: moves all 4 limbs Psychiatric: normal affect Dx/Plan (1) HTN (hypertension) Code(s): I10 - ESSENTIAL (PRIMARY) HYPERTENSION Status: Chronic Qualifiers: Comment: Pt concerned re: cancer risk with hydrochlorothiazide use. Literature review indicates increased risk of skin cancers. Will discontinue HCTZ and start hydralazine. Pt to follow up with PCP for further management. (2) Diabetes type 2, controlled Code(s): E11.9 - TYPE 2 DIABETES MELLITUS WITHOUT COMPLICATIONS Status: Chronic Comment: start accuchecks, insulin sliding scale (3) Dyslipidemia Code(s): E78.5 - HYPERLIPIDEMIA, UNSPECIFIED Status: Chronic Comment: continue statin - Plan * . Review of Systems - Review of Systems Respiratory: negative: Cough, Shortness of Breath, SOB with Excertion, Pleuritic Pain, Wheezing Cardiovascular: negative: chest pain, palpitations, orthopnea, paroxysmal nocturnal dyspnea, edema, light headedness - Medications/Allergies Allergies/Adverse Reactions: Allergies Allergy/AdvReac Type Severity Reaction Status Date / Time Penicillins Allergy Verified 07/12/18 08:20 Medications: Current Medications Acetaminophen/Codeine Phosphate (Tylenol #3) 1 tab PO Q6H PRN PRN Reason: Moderate Pain (4-6) Hydrocodone Bitart/Acetaminophen ([place] 10/325) 1 tab PO Q4H PRN PRN Reason: PAIN (1-3) Last Admin: 07/16/18 13:50 Dose: 1 tab Hydrocodone Bitart/Acetaminophen ([place] 10/325) 2 tab PO Q4H PRN PRN Reason: PAIN (4-6) Al Hydroxide/Mg Hydroxide (Maalox) 30 ml PO Q4H PRN PRN Reason: Heartburn or Indigestion Alprazolam (Xanax) 0.5 mg PO DAILYPRN PRN PRN Reason: Anxiety Benazepril HCl (Lotensin) 10 mg PO QAM [facility] Last Admin: 07/16/18 08:29 Dose: 10 mg Citalopram Hydrobromide (Celexa) [address] [facility] Last Admin: 07/16/18 08:29 Dose: 40 mg Clonidine (Catapres) 0.3 mg PO HS [facility] Cyclobenzaprine HCl (Flexeril) 10 mg PO DAILYPRN PRN PRN Reason: Muscle Spasm Last Admin: 07/16/18 08:32 Dose: 10 mg Dextrose/Water (Dextrose 50%) 25 gm SLOW IVP PRN PRN PRN Reason: Hypoglycemia Diltiazem HCl (Cardizem Cd) 120 mg PO TID [facility] Last Admin: 07/16/18 15:16 Dose: 120 mg Diphenhydramine HCl (Benadryl) 25 mg PO Q6H PRN PRN Reason: Itching Diphenhydramine HCl (Benadryl) 25 mg IVP Q6H PRN PRN Reason: Itching Glucagon (Glucagon) 1 mg IM PRN PRN PRN Reason: Hypoglycemia Hydralazine HCl (Apresoline) 25 mg PO TID [facility] Sodium Chloride (Normal Saline 0.9%) 1,000 mls @ 75 mls/hr IV .[id number] [facility] Last Admin: 07/16/18 05:11 Dose: Not Given Clindamycin Phosphate/Dextrose (900 mg/ Device) 50 mls @ 100 mls/hr IVPB Q8HR [facility] Last Admin: 07/16/18 13:54 Dose: 50 mls Dextrose/Water (D5w) 1,000 mls @ 0 mls/hr IV .Q0M PRN PRN Reason: Hypoglycemia Insulin Human Lispro (Humalog) 0 units [place] .MILD SLIDING SCALE PRN PRN Reason: Mild Correctional Scale Magnesium Hydroxide (Milk Of Magnesium) 30 ml PO Q12H PRN PRN Reason: Constipation Metformin HCl (Glucophage) 500 mg PO [facility]ID[facility] Last Admin: 07/16/18 08:28 Dose: 500 mg Morphine Sulfate (Morphine) 4 mg SLOW IVP Q1H PRN PRN Reason: SEVERE BREAKTHROUGH PAIN Morphine Sulfate (Morphine) 2 mg SLOW IVP Q1H PRN PRN Reason: Moderate Breakthrough Pain Last Admin: 07/15/18 18:23 Dose: 2 mg Ondansetron HCl (Zofran) 4 mg IVP Q24H PRN PRN Reason: Nausea/Vomiting Pravastatin Sodium (Pravachol) 40 mg PO [facility] Promethazine HCl (Phenergan) 12.5 mg IM Q4H PRN PRN Reason: Nausea/Vomiting Promethazine HCl (Phenergan) 12.5 mg PO Q4H PRN PRN Reason: Nausea/Vomiting Promethazine HCl (Phenergan Suppository) 12.5 mg [place] Q4H PRN PRN Reason: Nausea/Vomiting Sodium Chloride (Flush - Normal Saline) 10 ml IVF Q12HR [facility] Last Admin: 07/16/18 08:27 Dose: Not Given Sodium Chloride (Flush - Normal Saline) 10 ml IVF PRN PRN PRN Reason: Saline Flush Tizanidine HCl (Zanaflex) 4 mg PO Q6H PRN PRN Reason: MUSCLE SPAMS Tramadol HCl (Ultram) 50 mg PO Q6H PRN PRN Reason: PAIN (1-3) Tramadol HCl (Ultram) 100 mg PO Q6H PRN PRN Reason: PAIN (4-6)
[2018-07-16] MEDS: hydrALAZINE 25 MG TAB PO SCH (20:14)
[2018-07-16] MEDS: Pravastatin Sodium 40 MG TAB PO SCH (20:14)
[2018-07-16] MEDS: cloNIDine 0.1 MG TAB PO SCH (20:14)
[2018-07-17] MEDS: HYDROcodone/Acetaminophen 10/325 mg Tablet PO PRN ×5 (00:10→20:53)
[2018-07-17] MEDS: tiZANidine HCl 4 MG TAB PO PRN (00:11)
[2018-07-17] MEDS: Sodium Chloride 0.9% 1,000 ML IV SCH ×2 (09:10→22:21)
[2018-07-17] MEDS: metFORMIN 500 MG TAB PO SCH ×2 (09:11→16:07)
[2018-07-17] MEDS: Citalopram 20 MG TAB PO SCH (09:12)
[2018-07-17] MEDS: hydrALAZINE 25 MG TAB PO SCH ×3 (09:14→20:52)
[2018-07-17] MEDS: Cyclobenzaprine 10 MG TAB PO PRN (09:19)
--- NOTE | 2018-07-17 15:49 | PDOC.PN ---
- Subjective Encounter Start Date: 07/17/18 Encounter Start Time: 08:20 Pt seen for followup re: hypertension. Feels better. - Objective Vital Signs & Weight: Vital Signs (12 hours) Temp Pulse Resp BP BP BP Pulse Ox 07/17/18 11:40 97.6 F 73 20 146/67 H 07/17/18 09:14 75 158/60 H 07/17/18 09:13 75 158/60 H 07/17/18 09:12 158/60 H 07/17/18 08:00 97 07/17/18 07:59 98.3 F 75 18 158/60 H 97 07/17/18 07:55 98.2 F 66 20 145/68 H 95 Weight Weight 250 lb I&O: 07/16/18 07/17/18 07/18/18 06:59 06:59 06:59 Intake Total 240 Output Total 50 2500 Balance -53 -5347 Result Diagrams: 07/15/18 09:50 07/15/18 09:50 Additional Labs: Accuchecks 07/17/18 07/17/18 07/16/18 11:03 06:01 21:22 POC Glucose 145 H 119 H 153 H 07/16/18 16:11 POC Glucose 121 H Phys Exam - Physical Examination Morbid obesity HEENT: moist MMs Neck: supple Respiratory: clear to auscultation bilateral Cardiovascular: RRR Gastrointestinal: soft Neurological: moves all 4 limbs Psychiatric: normal affect Dx/Plan (1) HTN (hypertension) Code(s): I10 - ESSENTIAL (PRIMARY) HYPERTENSION Status: Chronic Qualifiers: Comment: Pt started on hydralazine. HCTZ has been discontinued. Monitor vital signs, titrate antihypertensives as needed. (2) Diabetes type 2, controlled Code(s): E11.9 - TYPE 2 DIABETES MELLITUS WITHOUT COMPLICATIONS Status: Chronic Comment: reasonably controlled (3) Dyslipidemia Code(s): E78.5 - HYPERLIPIDEMIA, UNSPECIFIED Status: Chronic Comment: on statin - Plan * . Review of Systems - Review of Systems Cardiovascular: negative: chest pain, palpitations, orthopnea, paroxysmal nocturnal dyspnea, edema, light headedness Gastrointestinal: negative: Nausea, Vomiting, Abdominal Pain, Diarrhea, Constipation, Melena, Hematochezia - Medications/Allergies Allergies/Adverse Reactions: Allergies Allergy/AdvReac Type Severity Reaction Status Date / Time Penicillins Allergy Verified 07/12/18 08:20 Medications: Current Medications Acetaminophen/Codeine Phosphate (Tylenol #3) 1 tab PO Q6H PRN PRN Reason: Moderate Pain (4-6) Hydrocodone Bitart/Acetaminophen ([place] 10/325) 1 tab PO Q4H PRN PRN Reason: PAIN (1-3) Last Admin: 07/16/18 20:16 Dose: 1 tab Hydrocodone Bitart/Acetaminophen ([place] 10/325) 2 tab PO Q4H PRN PRN Reason: PAIN (4-6) Last Admin: 07/17/18 12:56 Dose: 2 tab Al Hydroxide/Mg Hydroxide (Maalox) 30 ml PO Q4H PRN PRN Reason: Heartburn or Indigestion Alprazolam (Xanax) 0.5 mg PO DAILYPRN PRN PRN Reason: Anxiety Benazepril [facility] (Lotensin) [facility] Last Admin: 07/17/18 09:12 Dose: 10 mg Citalopram Hydrobromide (Celexa) 40 mg PO [facility] Last Admin: 07/17/18 09:12 Dose: 40 mg Clonidine (Catapres) 0.3 mg PO [facility] Last Admin: 07/16/18 20:14 Dose: 0.3 mg Cyclobenzaprine HCl (Flexeril) 10 mg PO DAILYPRN PRN PRN Reason: Muscle Spasm Last Admin: 07/17/18 09:19 Dose: 10 mg Dextrose/Water (Dextrose 50%) 25 gm SLOW IVP PRN PRN PRN Reason: Hypoglycemia Diltiazem HCl (Cardizem Cd) 120 mg PO TID [facility] Last Admin: 07/17/18 09:13 Dose: 120 mg Diphenhydramine HCl (Benadryl) 25 mg PO Q6H PRN PRN Reason: Itching Diphenhydramine HCl (Benadryl) 25 mg IVP Q6H PRN PRN Reason: Itching Glucagon (Glucagon) 1 mg IM PRN PRN PRN Reason: Hypoglycemia Hydralazine HCl (Apresoline) 25 mg PO TID [facility] Last Admin: 07/17/18 09:14 Dose: 25 mg Sodium Chloride (Normal Saline 0.9%) 1,000 mls @ 75 mls/hr IV .[id number] [facility] Last Admin: 07/17/18 09:10 Dose: Not Given Dextrose/Water (D5w) 1,000 mls @ 0 mls/hr IV .Q0M PRN PRN Reason: Hypoglycemia Insulin Human Lispro (Humalog) 0 units [place] .MILD SLIDING SCALE PRN PRN Reason: Mild Correctional Scale Magnesium Hydroxide (Milk Of Magnesium) 30 ml PO Q12H PRN PRN Reason: Constipation Metformin HCl (Glucophage) 500 mg PO BID-[facility] Last Admin: 07/17/18 09:11 Dose: 500 mg Morphine Sulfate (Morphine) 4 mg SLOW IVP Q1H PRN PRN Reason: SEVERE BREAKTHROUGH PAIN Morphine Sulfate (Morphine) 2 mg SLOW IVP Q1H PRN PRN Reason: Moderate Breakthrough Pain Last Admin: 07/15/18 18:23 Dose: 2 mg Ondansetron HCl (Zofran) 4 mg IVP Q24H PRN PRN Reason: Nausea/Vomiting Pravastatin Sodium (Pravachol) 40 mg PO HS [facility] Last Admin: 07/16/18 20:14 Dose: 40 mg Promethazine HCl (Phenergan) 12.5 mg IM Q4H PRN PRN Reason: Nausea/Vomiting Promethazine HCl (Phenergan) 12.5 mg PO Q4H PRN PRN Reason: Nausea/Vomiting Promethazine HCl (Phenergan Suppository) 12.5 mg [place] Q4H PRN PRN Reason: Nausea/Vomiting Sodium Chloride (Flush - Normal Saline) 10 ml IVF Q12HR [facility] Last Admin: 07/17/18 09:14 Dose: 10 ml Sodium Chloride (Flush - Normal Saline) 10 ml IVF PRN PRN PRN Reason: Saline Flush Tizanidine HCl (Zanaflex) 4 mg PO Q6H PRN PRN Reason: MUSCLE SPAMS Last Admin: 07/17/18 00:11 Dose: 4 mg Tramadol HCl (Ultram) 50 mg PO Q6H PRN PRN Reason: PAIN (1-3) Tramadol HCl (Ultram) 100 mg PO Q6H PRN PRN Reason: PAIN (4-6)
[2018-07-17] MEDS: cloNIDine 0.1 MG TAB PO SCH (20:53)
[2018-07-17] MEDS: Pravastatin Sodium 40 MG TAB PO SCH (20:53)
[2018-07-18] MEDS: tiZANidine HCl 4 MG TAB PO PRN (00:14)
[2018-07-18] MEDS: HYDROcodone/Acetaminophen 10/325 mg Tablet PO PRN ×5 (04:10→21:15)
--- NOTE | 2018-07-18 07:50 | PRG ---
DATE OF SERVICE: 07/18/2018 The patient is a 58-year-old female, status post anterior and posterior decompression and fusion at C3 to C6. She reports her pain continues to be well -controlled with prn [place]. She does have some persistent left-sided weakness, but this has improved slightly since her surgery. She has a small amount of drainage along the posterior incision, which is serosanguinous but it has not saturated dressing and appears to be decreasing daily. She reports she got up with PhysicalTherapy yesterday and walked short distance in the hallway, but she is still requiring a two person assist to get out of bed. The patient is sitting up the bed. This morning, she is awake and alert, in no acute distress. She has 5/5 strength and free active range of motion on the right. She is still significantly weak on the left. She has a 4- left manager activities and left biceps strength. She has 3+ over the left triceps and deltoid. Over the lower extremity, she has 4- strength with dorsiflexion, plantar flexion, and EHL. 3+/5 over the proximal leg. She is hyperreflexive throughout- unchanged. The patient continues to have persistent left-sided weakness and she is working regularly with Physical Therapy. She will require inpatient rehabilitation and we are pending insurance authorization. Job ID: [id number] [id number]
[2018-07-18] MEDS: metFORMIN 500 MG TAB PO SCH ×2 (08:42→18:09)
[2018-07-18] MEDS: Citalopram 20 MG TAB PO SCH (08:42)
[2018-07-18] MEDS: hydrALAZINE 25 MG TAB PO SCH ×3 (08:42→21:05)
[2018-07-18] MEDS: Sodium Chloride 0.9% 1,000 ML IV SCH ×2 (08:56→22:34)
[2018-07-18] MEDS: ALPRAZolam 1 MG TAB PO PRN ×2 (11:40→21:03)
--- NOTE | 2018-07-18 17:37 | PDOC.PN ---
- Subjective Encounter Start Date: 07/18/18 Encounter Start Time: 09:00 Pt seen for followup re: hypertension. Reports feeling better. - Objective Vital Signs & Weight: Vital Signs (12 hours) Temp Pulse Resp BP BP Pulse Ox 07/18/18 14:10 72 150/92 H 07/18/18 14:00 98.5 F 73 20 150/92 H 96 07/18/18 12:00 98.4 F 72 20 134/60 07/18/18 08:43 68 07/18/18 08:42 68 07/18/18 08:00 97.9 F 68 20 139/70 94 L Weight Weight 250 lb I&O: 07/17/18 07/18/18 07/19/18 06:59 06:59 06:59 Intake Total 240 600 Output Total 2500 700 Balance -2260 -100 Result Diagrams: 07/15/18 09:50 07/15/18 09:50 Additional Labs: Accuchecks 07/18/18 07/18/18 07/17/18 11:23 06:15 20:59 POC Glucose 237 H 114 H 103 Phys Exam - Physical Examination Constitutional: NAD HEENT: moist MMs s/p surgery Respiratory: clear to auscultation bilateral Cardiovascular: RRR Gastrointestinal: soft Neurological: moves all 4 limbs Psychiatric: normal affect Dx/Plan (1) HTN (hypertension) Code(s): I10 - ESSENTIAL (PRIMARY) HYPERTENSION Status: Chronic Qualifiers: Comment: controlled, continue hydralazine. HCTZ has been discontinued. (2) Diabetes type 2, controlled Code(s): E11.9 - TYPE 2 DIABETES MELLITUS WITHOUT COMPLICATIONS Status: Chronic Comment: controlled (3) Dyslipidemia Code(s): E78.5 - HYPERLIPIDEMIA, UNSPECIFIED Status: Chronic Comment: on statin (4) Mild depression Code(s): F32.0 - MAJOR DEPRESSIVE DISORDER, SINGLE EPISODE, MILD Status: Chronic Comment: stable, continue citalopram - Plan * . Review of Systems - Review of Systems Cardiovascular: negative: chest pain, palpitations, orthopnea, paroxysmal nocturnal dyspnea, edema, light headedness Gastrointestinal: negative: Nausea, Vomiting, Abdominal Pain, Diarrhea, Constipation, Melena, Hematochezia - Medications/Allergies Allergies/Adverse Reactions: Allergies Allergy/AdvReac Type Severity Reaction Status Date / Time Penicillins Allergy Verified 07/12/18 08:20 Medications: Current Medications Acetaminophen/Codeine Phosphate (Tylenol #3) 1 tab PO Q6H PRN PRN Reason: Moderate Pain (4-6) Hydrocodone Bitart/Acetaminophen (Orchard 10/325) 1 tab PO Q4H PRN PRN Reason: PAIN (1-3) Last Admin: 07/17/18 17:28 Dose: 1 tab Hydrocodone Bitart/Acetaminophen (Orchard 10/325) 2 tab PO Q4H PRN PRN Reason: PAIN (4-6) Last Admin: 07/18/18 14:09 Dose: 2 tab Al Hydroxide/Mg Hydroxide (Maalox) 30 ml PO Q4H PRN PRN Reason: Heartburn or Indigestion Alprazolam (Xanax) 0.5 mg PO DAILYPRN PRN PRN Reason: Anxiety Last Admin: 07/18/18 11:40 Dose: 0.5 mg Benazepril HCl (Lotensin) 10 mg PO [facility] Last Admin: 07/18/18 08:43 Dose: 10 mg Citalopram Hydrobromide (Celexa) 40 mg PO [facility] Last Admin: 07/18/18 08:42 Dose: 40 mg Clonidine (Catapres) 0.3 mg PO [facility] Last Admin: 07/17/18 20:53 Dose: 0.3 mg Cyclobenzaprine HCl (Flexeril) 10 mg PO DAILYPRN PRN PRN Reason: Muscle Spasm Last Admin: 07/17/18 09:19 Dose: 10 mg Dextrose/Water (Dextrose 50%) 25 gm SLOW IVP PRN PRN PRN Reason: Hypoglycemia Diltiazem HCl (Cardizem Cd) 120 mg PO TID [facility] Last Admin: 07/18/18 14:10 Dose: 120 mg Diphenhydramine HCl (Benadryl) 25 mg PO Q6H PRN PRN Reason: Itching Diphenhydramine HCl (Benadryl) 25 mg IVP Q6H PRN PRN Reason: Itching Glucagon (Glucagon) 1 mg IM PRN PRN PRN Reason: Hypoglycemia Hydralazine HCl (Apresoline) 25 mg PO TID [facility] Last Admin: 07/18/18 14:10 Dose: 25 mg Sodium Chloride (Normal Saline 0.9%) 1,000 mls @ 75 mls/hr IV .[id number] [facility] Last Admin: 07/18/18 08:56 Dose: Not Given Dextrose/Water (D5w) 1,000 mls @ 0 mls/hr IV .Q0M PRN PRN Reason: Hypoglycemia Insulin Human Lispro (Humalog) 0 units SC .MILD SLIDING SCALE PRN PRN Reason: Mild Correctional Scale Magnesium Hydroxide (Milk Of Magnesium) 30 ml PO Q12H PRN PRN Reason: Constipation Metformin HCl (Glucophage) 500 mg PO BID[facility] Last Admin: 07/18/18 08:42 Dose: 500 mg Morphine Sulfate (Morphine) 4 mg SLOW IVP Q1H PRN PRN Reason: SEVERE BREAKTHROUGH PAIN Morphine Sulfate (Morphine) 2 mg SLOW IVP Q1H PRN PRN Reason: Moderate Breakthrough Pain Last Admin: 07/15/18 18:23 Dose: 2 mg Ondansetron HCl (Zofran) 4 mg IVP Q24H PRN PRN Reason: Nausea/Vomiting Pravastatin Sodium (Pravachol) 40 mg PO [facility] Last Admin: 07/17/18 20:53 Dose: 40 mg Promethazine HCl (Phenergan) 12.5 mg IM Q4H PRN PRN Reason: Nausea/Vomiting Promethazine HCl (Phenergan) 12.5 mg PO Q4H PRN PRN Reason: Nausea/Vomiting Promethazine HCl (Phenergan Suppository) 12.5 mg [place] Q4H PRN PRN Reason: Nausea/Vomiting Sodium Chloride (Flush - Normal Saline) 10 ml IVF Q12HR [facility] Last Admin: 07/18/18 08:55 Dose: Not Given Sodium Chloride (Flush - Normal Saline) 10 ml IVF PRN PRN PRN Reason: Saline Flush Tizanidine HCl (Zanaflex) 4 mg PO Q6H PRN PRN Reason: MUSCLE SPAMS Last Admin: 07/18/18 00:14 Dose: 4 mg Tramadol HCl (Ultram) 50 mg PO Q6H PRN PRN Reason: PAIN (1-3) Tramadol HCl (Ultram) 100 mg PO Q6H PRN PRN Reason: PAIN (4-6)
[2018-07-18] MEDS: Pravastatin Sodium 40 MG TAB PO SCH (21:03)
[2018-07-18] MEDS: cloNIDine 0.1 MG TAB PO SCH (21:05)
[2018-07-19] MEDS: HYDROcodone/Acetaminophen 10/325 mg Tablet PO PRN ×6 (01:03→22:37)
[2018-07-19] MEDS: Cyclobenzaprine 10 MG TAB PO PRN ×2 (01:03→20:52)
[2018-07-19] MEDS: hydrALAZINE 25 MG TAB PO SCH ×3 (09:16→20:49)
[2018-07-19] MEDS: diphenhydrAMINE 25 MG CAP PO PRN ×2 (09:16→15:39)
[2018-07-19] MEDS: Citalopram 20 MG TAB PO SCH (09:16)
[2018-07-19] MEDS: metFORMIN 500 MG TAB PO SCH ×2 (09:18→18:36)
--- NOTE | 2018-07-19 11:57 | PRG ---
DATE OF SERVICE: 07/19/2018 Today is postoperative day #4, status post C3-C6 anterior and posterior decompression and fusion. Her pain continues to be well controlled with p.o. [place], she is tolerating regular diet, and voiding appropriately. Still slow to mobilize and requiring two person assist for transfer. Is ambulating some with the asssistance of PT and a walker. Continues to have left sided weakness. Awaiting insurance auth for inpatient rehab. There was small amount of incisional drainage overnight. On exam of the incision she has small amount of serosanginous drainage, which appears to be coming from the middle portion of the incision. No dehiscence, redness or signs of infection. She continues to have persistent left-sided weakness which is unchanged from yesterdays exam. I placed two vertical mattress sutures oversewing the incision with resolution of any noted drainage. Dressing was applied. Plans for inpatient rehabilitation soon. Job ID: [id number] MTDD
[2018-07-19] MEDS: tiZANidine HCl 4 MG TAB PO PRN (12:16)
[2018-07-19] MEDS: Sodium Chloride 0.9% 1,000 ML IV SCH ×2 (12:50→21:28)
--- NOTE | 2018-07-19 14:27 | PDOC.PN ---
- Subjective Encounter Start Date: 07/19/18 Encounter Start Time: 09:00 Pt seen for followup re: hypertension. Feels better. - Objective MAR Reviewed: Yes Vital Signs & Weight: Vital Signs (12 hours) Temp Pulse Resp BP BP Pulse Ox 07/19/18 14:19 81 170/80 H 07/19/18 11:30 98.7 F 81 16 170/80 H 98 07/19/18 09:17 92 164/89 H 07/19/18 09:16 92 164/89 H 07/19/18 08:00 98 07/19/18 07:40 98.8 F 92 16 164/89 H 96 07/19/18 05:41 98.8 F 78 16 138/82 96 Weight Weight 250 lb I&O: 07/18/18 07/19/18 07/20/18 06:59 06:59 06:59 Intake Total 600 1130 Output Total 700 Balance -100 1130 Result Diagrams: 07/15/18 09:50 07/15/18 09:50 Additional Labs: Accuchecks 07/19/18 07/19/18 07/18/18 11:28 06:14 22:01 POC Glucose 114 H 116 H 115 H 07/18/18 18:17 POC Glucose 102 labs reviewed by me Phys Exam - Physical Examination Constitutional: NAD HEENT: moist MMs Neck: supple Respiratory: clear to auscultation bilateral Cardiovascular: no rub Gastrointestinal: non-tender Neurological: moves all 4 limbs Psychiatric: normal affect Dx/Plan (1) HTN (hypertension) Code(s): I10 - ESSENTIAL (PRIMARY) HYPERTENSION Status: Chronic Qualifiers: Comment: HCTZ has been discontinued. Pt to be discharged on hydralazine (2) Diabetes type 2, controlled Code(s): E11.9 - TYPE 2 DIABETES MELLITUS WITHOUT COMPLICATIONS Status: Chronic Comment: controlled (3) Dyslipidemia Code(s): E78.5 - HYPERLIPIDEMIA, UNSPECIFIED Status: Chronic Comment: will continue statin (4) Mild depression Code(s): F32.0 - MAJOR DEPRESSIVE DISORDER, SINGLE EPISODE, MILD Status: Chronic Comment: stable - Plan * . Review of Systems - Review of Systems Respiratory: negative: Cough, Shortness of Breath, Hemoptysis, Pleuritic Pain, Wheezing Cardiovascular: negative: chest pain, palpitations, orthopnea, paroxysmal nocturnal dyspnea, edema, light headedness - Medications/Allergies Allergies/Adverse Reactions: Allergies Allergy/AdvReac Type Severity Reaction Status Date / Time Penicillins Allergy Verified 07/12/18 08:20 Medications: Current Medications Acetaminophen/Codeine Phosphate (Tylenol #3) 1 tab PO Q6H PRN PRN Reason: Moderate Pain (4-6) Hydrocodone Bitart/Acetaminophen (Bryan 10/325) 1 tab PO Q4H PRN PRN Reason: PAIN (1-3) Last Admin: 07/17/18 17:28 Dose: 1 tab Hydrocodone Bitart/Acetaminophen (Bryan 10/325) 2 tab PO Q4H PRN PRN Reason: PAIN (4-6) Last Admin: 07/19/18 14:18 Dose: 2 tab Al Hydroxide/Mg Hydroxide (Maalox) 30 ml PO Q4H PRN PRN Reason: Heartburn or Indigestion Alprazolam (Xanax) 0.5 mg PO DAILYPRN PRN PRN Reason: Anxiety Last Admin: 07/18/18 21:03 Dose: 0.5 mg Benazepril HCl (Lotensin) [address] [facility] Last Admin: 07/19/18 09:17 Dose: 10 mg Citalopram Hydrobromide (Celexa) [address] [facility] Last Admin: 07/19/18 09:16 Dose: 40 mg Clonidine (Catapres) 0.3 mg PO [facility] Last Admin: 07/18/18 21:05 Dose: 0.3 mg Cyclobenzaprine HCl (Flexeril) 10 mg PO DAILYPRN PRN PRN Reason: Muscle Spasm Last Admin: 07/19/18 01:03 Dose: 10 mg Dextrose/Water (Dextrose 50%) 25 gm SLOW IVP PRN PRN PRN Reason: Hypoglycemia Diltiazem HCl (Cardizem Cd) 120 mg PO TID [facility] Last Admin: 07/19/18 14:19 Dose: 120 mg Diphenhydramine HCl (Benadryl) 25 mg PO Q6H PRN PRN Reason: Itching Last Admin: 07/19/18 09:16 Dose: 25 mg Diphenhydramine HCl (Benadryl) 25 mg IVP Q6H PRN PRN Reason: Itching Glucagon (Glucagon) 1 mg IM PRN PRN PRN Reason: Hypoglycemia Hydralazine HCl (Apresoline) 25 mg PO TID [facility] Last Admin: 07/19/18 14:19 Dose: 25 mg Sodium Chloride (Normal Saline 0.9%) 1,000 mls @ 75 mls/hr IV .[id number] [facility] Last Admin: 07/19/18 12:50 Dose: Not Given Dextrose/Water (D5w) 1,000 mls @ 0 mls/hr IV .Q0M PRN PRN Reason: Hypoglycemia Insulin Human Lispro (Humalog) 0 units SC .MILD SLIDING SCALE PRN PRN Reason: Mild Correctional Scale Magnesium Hydroxide (Milk Of Magnesium) 30 ml PO Q12H PRN PRN Reason: Constipation Metformin HCl (Glucophage) 500 mg PO BID-[facility] Last Admin: 07/19/18 09:18 Dose: 500 mg Morphine Sulfate (Morphine) 4 mg SLOW IVP Q1H PRN PRN Reason: SEVERE BREAKTHROUGH PAIN Morphine Sulfate (Morphine) 2 mg SLOW IVP Q1H PRN PRN Reason: Moderate Breakthrough Pain Last Admin: 07/15/18 18:23 Dose: 2 mg Ondansetron HCl (Zofran) 4 mg IVP Q24H PRN PRN Reason: Nausea/Vomiting Pravastatin Sodium (Pravachol) 40 mg PO HS [facility] Last Admin: 07/18/18 21:03 Dose: 40 mg Promethazine HCl (Phenergan) 12.5 mg IM Q4H PRN PRN Reason: Nausea/Vomiting Promethazine HCl (Phenergan) 12.5 mg PO Q4H PRN PRN Reason: Nausea/Vomiting Promethazine HCl (Phenergan Suppository) 12.5 mg [place] Q4H PRN PRN Reason: Nausea/Vomiting Sodium Chloride (Flush - Normal Saline) 10 ml IVF Q12HR [facility] Last Admin: 07/19/18 12:50 Dose: Not Given Sodium Chloride (Flush - Normal Saline) 10 ml IVF PRN PRN PRN Reason: Saline Flush Tizanidine HCl (Zanaflex) 4 mg PO Q6H PRN PRN Reason: MUSCLE SPAMS Last Admin: 07/19/18 12:16 Dose: 4 mg Tramadol HCl (Ultram) 50 mg PO Q6H PRN PRN Reason: PAIN (1-3) Tramadol HCl (Ultram) 100 mg PO Q6H PRN PRN Reason: PAIN (4-6)
[2018-07-19] MEDS: ALPRAZolam 1 MG TAB PO PRN (20:48)
[2018-07-19] MEDS: cloNIDine 0.1 MG TAB PO SCH (20:51)
[2018-07-19] MEDS: Pravastatin Sodium 40 MG TAB PO SCH (20:52)
[2018-07-20] MEDS: tiZANidine HCl 4 MG TAB PO PRN ×2 (02:35→09:37)
[2018-07-20] MEDS: HYDROcodone/Acetaminophen 10/325 mg Tablet PO PRN ×3 (02:35→11:38)
--- NOTE | 2018-07-20 07:56 | PRG ---
DATE OF SERVICE: 07/20/2018 NEUROSURGERY PROGRESS NOTE I saw Ms. Stacy in her hospital room this morning. She has been accepted to inpatient rehabilitation and a transfer is pending today. Her vitals remained stable overnight. Her neurological function is slowly improving after cervical decompression, but she has a long way to go. She will benefit greatly from inpatient rehabilitation. Job ID: [id number]
[2018-07-20 08:09] VITALS: BP 159/79; TEMP 98.9
[2018-07-20] MEDS ORDERED: hydrALAZINE 25 MG TAB PO SCH (09:00)
[2018-07-20] MEDS: Citalopram 20 MG TAB PO SCH (09:33)
[2018-07-20] MEDS: metFORMIN 500 MG TAB PO SCH (09:33)
--- NOTE | 2018-07-20 13:52 | PDOC.PN ---
- Subjective Encounter Start Date: 07/20/18 Encounter Start Time: 09:00 Pt seen for followup re: hypertension. denies chest pain, shortness of breath, fevers or chills. - Objective MAR Reviewed: Yes Vital Signs & Weight: Vital Signs (12 hours) Temp Pulse Resp BP BP Pulse Ox 07/20/18 09:34 82 07/20/18 07:15 98.9 F 82 20 159/79 H 98 07/20/18 04:00 98.8 F 80 19 149/81 H 95 Weight Weight 250 lb I&O: 07/19/18 07/20/18 07/21/18 06:59 06:59 06:59 Intake Total 1130 2120 Balance 1130 2120 Result Diagrams: 07/15/18 09:50 07/15/18 09:50 Additional Labs: Accuchecks 07/20/18 07/19/18 07/19/18 11:01 20:53 15:27 POC Glucose 100 115 H 109 labs reviewed by me Phys Exam - Physical Examination Constitutional: NAD HEENT: moist MMs Neck: supple Respiratory: clear to auscultation bilateral Cardiovascular: RRR Gastrointestinal: soft Neurological: moves all 4 limbs Psychiatric: normal affect Dx/Plan (1) HTN (hypertension) Code(s): I10 - ESSENTIAL (PRIMARY) HYPERTENSION Status: Chronic Qualifiers: Comment: Change hydralazine to 25 mg PO QID (blood pressure still high) (2) Diabetes type 2, controlled Code(s): E11.9 - TYPE 2 DIABETES MELLITUS WITHOUT COMPLICATIONS Status: Chronic Comment: controlled (3) Dyslipidemia Code(s): E78.5 - HYPERLIPIDEMIA, UNSPECIFIED Status: Chronic Comment: on statin (4) Mild depression Code(s): F32.0 - MAJOR DEPRESSIVE DISORDER, SINGLE EPISODE, MILD Status: Chronic Comment: stable - Plan * . Review of Systems - Review of Systems Respiratory: negative: Cough, Shortness of Breath, SOB with Excertion, Pleuritic Pain, Wheezing Cardiovascular: negative: chest pain, palpitations, orthopnea, paroxysmal nocturnal dyspnea, edema, light headedness - Medications/Allergies Allergies/Adverse Reactions: Allergies Allergy/AdvReac Type Severity Reaction Status Date / Time Penicillins Allergy Verified 07/12/18 08:20
== END 2018-07-20 11:52 | DRG 472 ==
LOC: SURG A 09:11 → 3SE 16:55 → SURG A 07-18 13:55
PROVIDERS: ADMIT Neurological Surgery; ATTEND Neurological Surgery
PROC: 0RG20A0 Fusion of 2 or more Cervical Vertebral Joints with Interbody Fusion Device, Anterior Approach, Anterior Column, Open Approach (ICD-10-PCS; principal; 2018-07-15)
PROC: 0RB30ZZ Excision of Cervical Vertebral Disc, Open Approach (ICD-10-PCS; 2018-07-15)
DX: M48.02 Spinal stenosis, cervical region (principal); Z68.41 Body mass index [BMI] 40.0-44.9, adult; F32.0 Major depressive disorder, single episode, mild; E66.01 Morbid (severe) obesity due to excess calories; I10 Essential (primary) hypertension; E11.9 Type 2 diabetes mellitus without complications; E78.5 Hyperlipidemia, unspecified; M54.12 Radiculopathy, cervical region
CPT/HCPCS: 36415; 36416; 76000; 80048; 85025; 93005; 93010; C1713; C1768; J1100; J1200; J1885; J1956; J2001; J2270; J2405; J2704; J3010; J3370; J3490

== ENCOUNTER 2018-08-13 09:56 | Outpatient (CLI) | payer MEDICARE ==
--- NOTE | 2018-08-13 11:11 | RAD ---
CERVICAL SPINE SERIES 3 VIEWS: HISTORY: Status post surgery followup. FINDINGS: Surgical janel are seen along the posterior neck. There has been placement of right unilateral fac et screws which extend from C3 to C6. There is an anterior plate and screws which also extends from the C3 to the C6 level. Some minimal prevertebral soft tissue swelling related to the recent surgery . IMPRESSION: Postoperative changes of the spine. POS: TPC
== END 2018-08-13 09:57 | disposition home or self-care (01) ==
LOC: TBSIIMAG 09:56
PROVIDERS: ATTEND Neurological Surgery
DX: G95.9 Disease of spinal cord, unspecified (principal); Z98.890 Other specified postprocedural states
CPT/HCPCS: 72040

== ENCOUNTER 2018-10-03 15:57 | Outpatient (CLI) | payer MEDICARE ==
--- NOTE | 2018-10-03 16:26 | RAD ---
FRadiograph cervical spine 3 views: 10/03/2018 HISTORY: 58-year-old female with cervical spondylosis and cervicalgia COMPARISON: 08/13/2018. FINDINGS: Anterior metallic plate and screws at C3-4-5-6. The C6 screws are in the C6-7 intervertebral disc spa ce. Unilateral right-sided posterior element screws with vertical interlocking yue at those same leve ls, and laminectomies at those same levels. Spinal canal is diffusely very small in caliber on a boris enital basis due to developmentally short pedicles. This is exacerbated by cervical spondylosis, with bony hypertrophy of the posterior aspects of the vertebral bodies that encroach upon the anterior as pect of the spinal canal, and slight degenerative retrolisthesis of C3 on C4, and C4 on C5. High-grad e disc space narrowing at C3-4, C4-5, C5-6, and C6-7. Reversal of curvature. The prevertebral soft ti ssue swelling demonstrated on the prior study has improved. The dorsal skin janel have been removed . There has been no other interval change. IMPRESSION: 1. Status post anterior cervical discectomy and fusion, laminectomies, and unilateral right posterior elements screw placement, at C3-4-5-6. 2. The C6 screws are in the C6-C7 disc space. 3. Severe cervical spondylosis exacerbating a developmentally small caliber spinal canal. It is presu med that this has improved after the laminectomies. 4. Other than interval improvement in the prevertebral soft tissue swelling, there has been no signif icant interval change since 08/13/2018.
== END 2018-10-03 15:58 | disposition home or self-care (01) ==
LOC: TBSIIMAG 15:57
PROVIDERS: ATTEND Neurological Surgery
DX: M48.02 Spinal stenosis, cervical region (principal); M47.812 Spondylosis without myelopathy or radiculopathy, cervical region; Z98.1 Arthrodesis status; Z98.890 Other specified postprocedural states
CPT/HCPCS: 72040

== ENCOUNTER 2018-12-24 13:41 | Outpatient (CLI) | payer MEDICARE ==
--- NOTE | 2018-12-24 14:01 | RAD ---
EXAM: XR Cerv Sp Ap Lat STANDARD PROVIDED CLINICAL HISTORY: Spondylosis with myelopathy in the cervical region. Follow-up evaluation of postsurgical changes cerv ical spine. COMPARISON: 10/03/2018. FINDINGS: Again noted are postsurgical changes of the cervical spine related to anterior as well as posterior f usion. Anterior plate and screws again transfix the C3-C6 levels with unilateral right-sided pedicular screws also extending from C3 through C6 transfixed by posterior yue. Laminectomy defects a re seen at these levels. The lower most anterior screws overlie the C6-7 intervertebral disc space. This is a stable finding. No other hardware complication present. There is straightening of the cervi albert curvature again seen. Prevertebral soft tissues are within normal limits. There has been no interval change from the prior exam. There are remote posterior right fourth, fifth, and sixth rib fractures. This was not imaged on prior exam. IMPRESSION: Stable postoperative changes of the cervical spine related to anterior as well as posterior fusion of C3-C6 levels. The most inferior screws involving the anterior plate are again seen overlying the C6-7 intervertebral disc space.
== END 2018-12-24 13:42 | disposition home or self-care (01) ==
LOC: TBSIIMAG 13:41
PROVIDERS: ATTEND Neurological Surgery
DX: M47.12 Other spondylosis with myelopathy, cervical region (principal); Z98.1 Arthrodesis status
CPT/HCPCS: 72040

== ENCOUNTER 2019-04-09 14:35 | Outpatient (CLI) | payer MEDICARE ==
--- NOTE | 2019-04-09 15:56 | MRI ---
MRI BRAIN WITHOUT CONTRAST: 04/09/2019 CLINICAL HISTORY: Hemiplegia. COMPARISON: None. FINDINGS: Extra axial spaces: Mild enlargement due to parenchymal atrophy. Acute infarction: None. Ventricular system: Normal in size and morphology for the patient's age. Basal cisterns: Normal. Cerebral parenchyma: Scattered multifocal signal abnormalities of the bilateral cerebral hemispheres. Midline shift: None. Cerebellum: Normal. Brainstem: Normal. Paranasal sinuses:Scattered mucosal thickening. IMPRESSION: 1. No acute intracranial abnormality. 2. Multifocal white matter signal abnormalities of each cerebral hemisphere. This could relate to adv anced for age microvascular ischemic disease. Alternatively, finding could relate to sequela from vasculitis/vasculopathy or possibly infectious/inflammatory process. Distribution does not favor demy elinating process. Consider followup with post contrast brain MRI to exclude associated pathologic intra-axial enhancement. Transcribed Date/Time: 04/09/2019 4:01 PM
== END 2019-04-09 14:36 | disposition home or self-care (01) ==
LOC: BICMRI 14:35
DX: G81.90 Hemiplegia, unspecified affecting unspecified side (principal); G93.89 Other specified disorders of brain
CPT/HCPCS: 70551

== ENCOUNTER 2020-03-26 11:57 | Outpatient (CLI) | payer MEDICARE ==
--- NOTE | 2020-04-05 11:29 | MMO ---
Bilateral MAMMO Bilat Screen [facility]. CLINICAL HISTORY: Patient is 60 years old and is seen for screening. The patient has no family history of breast cancer. The patient has no personal history of cancer. VIEWS: The views performed were: bilateral craniocaudal with tomosynthesis and bilateral mediolateral oblique with tomosynthesis. FILMS COMPARED: The present examination has been compared to prior imaging studies performed at [facility] on 01/15/2015, 12/19/2016 and 02/19/2018. This study has been interpreted with the assistance of computer-aided detection. MAMMOGRAM FINDINGS: There are scattered fibroglandular densities. There are benign appearing calcifications seen in both breasts. There are no suspicious masses, suspicious calcifications, or new areas of architectural distortion. IMPRESSION: THERE IS NO MAMMOGRAPHIC EVIDENCE OF MALIGNANCY. A ROUTINE FOLLOW-UP MAMMOGRAM IN 1 YEAR IS RECOMMENDED. THE RESULTS OF THIS EXAM WERE SENT TO THE PATIENT. ACR BI-RADS Category 2 - Benign finding MAMMOGRAPHY NOTE: 1. A negative mammogram report should not delay a biopsy if a dominant of clinically suspicious mass is present. 2. Approximately 10% to 15% of breast cancers are not detected by mammography. 3. Adenosis and dense breasts may obscure an underlying neoplasm. Reported by: JUNITO ALEGRE MD Electonically Signed: [id number]
== END 2020-03-26 11:58 | disposition home or self-care (01) ==
LOC: BICMAMMO 11:57
DX: Z12.31 Encounter for screening mammogram for malignant neoplasm of breast (principal)
CPT/HCPCS: 77063; 77067

== ENCOUNTER 2020-10-11 09:05 | Outpatient (CLI) | payer MEDICARE | END 2020-10-11 09:06 | disposition home or self-care (01) | LOC: BICMRI 09:05 | PROVIDERS: ATTEND Neurological Surgery | DX: M48.062 Spinal stenosis, lumbar region with neurogenic claudication (principal); M47.816 Spondylosis without myelopathy or radiculopathy, lumbar region; M51.36 Other intervertebral disc degeneration, lumbar region | CPT/HCPCS: 72148 ==

== ENCOUNTER 2020-12-30 08:47 | Outpatient (CLI) | payer MEDICARE | END 2020-12-30 08:48 | disposition home or self-care (01) | LOC: BICCT 08:47 | DX: R10.32 Left lower quadrant pain (principal); E27.8 Other specified disorders of adrenal gland | CPT/HCPCS: 74177 ==

== ENCOUNTER 2021-11-16 14:56 | Outpatient (CLI) | payer MEDICARE | END 2021-11-16 14:57 | disposition home or self-care (01) | LOC: BICULT 14:56 | PROVIDERS: ATTEND Internal Medicine Nephrology | DX: N17.9 Acute kidney failure, unspecified (principal); R94.4 Abnormal results of kidney function studies; I10 Essential (primary) hypertension; E11.9 Type 2 diabetes mellitus without complications | CPT/HCPCS: 76770 ==

== ENCOUNTER 2021-12-16 21:33 | Inpatient (IN) | payer MEDICARE, OTHER ==
[2021-12-16] MEDS ORDERED: HYDROcodone/Acetaminophen 5/325 mg Tablet ONE (22:34)
[2021-12-17 05:23] VITALS: BMI 41.2
[2021-12-17] MEDS: Acetaminophen 325 MG TAB PO PRN (06:02)
[2021-12-17] MEDS ORDERED: HumaLOG 300 UNITS/3 ML VIAL SC PRN (09:00)
[2021-12-17] MEDS ORDERED: Dextrose 5% in Water 1,000 ML IV PRN (09:00)
[2021-12-17] MEDS ORDERED: Dextrose 50% Abboject 50 ML SYRINGE SLOW IVP PRN (09:00)
[2021-12-17 09:13] LABS: #Basophils 0.1 thou/uL (0.0-0.2); #Eosinphils 0.4 thou/uL (0.0-0.7); #Lymphocytes 5.1 thou/uL (1.20-3.40); #Neutrophils 3.8 thou/uL (1.40-6.50); %Basophils 0.9 % (0.0-1.0); %Eosinophils 3.6 % (0.0-10.0); %Lymphocytes 49.6 % (21.0-51.0); %Monocytes 9.4 % (0.0-10.0); %Neutrophils 36.5 % (42.0-75.0); Hemoglobin 13.3 g/dL (12.0-16.0); Mean Corpuscular HGB CONC 32.2 g/dL (32.0-36.0); Mean Corpuscular Hemoglobin 31.4 pg (27.0-31.0); Mean Corpuscular Volume 97.7 fL (78.0-98.0); Mean Platelet Volume 6.5 fL (7.4-10.4); Platelet Count 374 thou/uL (130-400); RBC Distribution Width 13.1 % (11.5-14.5); Red Blood Cell (RBC) Count 4.22 mill/uL (4.20-5.40); White Blood Cell (WBC) Count 10.3 thou/uL (4.8-10.8)
[2021-12-17] MEDS: metFORMIN XR 500 MG TAB PO SCH (09:27)
[2021-12-17] MEDS: Citalopram 20 MG TAB PO SCH (09:27)
[2021-12-17] MEDS: Cyclobenzaprine 10 MG TAB PO SCH ×3 (09:28→19:59)
[2021-12-17] MEDS: ALPRAZolam 0.5 MG TAB PO SCH ×3 (09:28→19:59)
[2021-12-17] MEDS: Nicotine 21 MG PATCH TD SCH (09:28)
[2021-12-17 09:32] LABS: ALT (SGPT) 27 U/L (8-55); AST (SGOT) 32 U/L (5-34); Albumin 3.8 g/dL (3.5-5.0); Alkaline Phosphatase 152 U/L (40-110); Anion Gap 11 mmol/L (10-20); BUN (Urea Nitrogen) 7 mg/dL (9.8-20.1); Bilirubin, Total 0.5 mg/dL (0.2-1.2); Calc. Creatinine Clearance 102 mL/min (70-130); Calcium 8.8 mg/dL (7.8-10.44); Carbon Dioxide 25 mmol/L (22-29); Chloride 108 mmol/L (98-107); Globulin 3.6 g/dL (2.4-3.5); Glucose 95 mg/dL (70-105); Potassium 3.5 mmol/L (3.5-5.1); Protein, Total 7.4 g/dL (6.0-8.3); Sodium 140 mmol/L (136-145)
[2021-12-17 15:55] LABS: Bacteria/HPF None Seen HPF (None Seen); Bilirubin Negative (Negative); Blood, Urine Negative (Negative); Clarity Clear (Clear); Glucose, Urine (Dipstick) Normal (Negative); Ketone, Urine Negative (Negative); Leukocyte Negative Leu/uL (Negative); Nitrite Negative (Negative); Protein, Urine (Dipstick) Negative (Neg-Trace); RBC/HPF 0-3 HPF (0-3); Specific Gravity, Urine 1.009 (1.002-1.036); Squamous Epithelial 0-3 HPF (0-3); Urobilinogen Normal mg/dL (Less than 2); WBC/HPF None Seen HPF (0-3)
[2021-12-17 16:05] LABS: Urine Culture Reflex No No
[2021-12-17] MEDS: Acetaminophen/Codeine 30-300mg Tablet PO PRN (16:35)
[2021-12-17] MEDS: Atorvastatin Calcium 10 MG TAB PO SCH (19:59)
[2021-12-18] MEDS: metFORMIN XR 500 MG TAB PO SCH (08:10)
[2021-12-18] MEDS: ALPRAZolam 0.5 MG TAB PO SCH ×3 (08:10→19:40)
[2021-12-18] MEDS: Citalopram 20 MG TAB PO SCH (08:10)
[2021-12-18] MEDS: Cyclobenzaprine 10 MG TAB PO SCH ×3 (08:10→19:40)
[2021-12-18] MEDS: Nicotine 21 MG PATCH TD SCH (08:11)
[2021-12-18 08:14] LABS: Anion Gap 13 mmol/L (10-20); BUN (Urea Nitrogen) 6 mg/dL (9.8-20.1); Calc. Creatinine Clearance 121 mL/min (70-130); Calcium 8.8 mg/dL (7.8-10.44); Carbon Dioxide 23 mmol/L (22-29); Chloride 108 mmol/L (98-107); Glucose 92 mg/dL (70-105); Potassium 3.5 mmol/L (3.5-5.1); Sodium 140 mmol/L (136-145)
[2021-12-18] MEDS ORDERED: Magnevist 469MG/ML 20 ML VIAL ONE (09:20)
[2021-12-18 10:03] LABS: Eosinophils 4 % (0-10); Hemoglobin 13.4 g/dL (12.0-16.0); Lymphocytes 44 % (21-51); MDiff Complete? YES; Mean Corpuscular HGB CONC 32.4 g/dL (32.0-36.0); Mean Corpuscular Hemoglobin 31.8 pg (27.0-31.0); Mean Platelet Volume 6.8 fL (7.4-10.4); Monocytes 11 % (0-10); Neutrophil 39 % (42-75); Platelet Count 361 thou/uL (130-400); Platelet Morphology Comment Appears Adequate; RBC Morphology Normal; Reactive Lymphocytes 2 % (0-10); Red Blood Cell (RBC) Count 4.22 mill/uL (4.20-5.40); White Blood Cell (WBC) Count 10.8 thou/uL (4.8-10.8)
[2021-12-18] MEDS: Acetaminophen/Codeine 30-300mg Tablet PO PRN ×3 (10:13→23:14)
[2021-12-18] MEDS ORDERED: traMADol HCl 50 MG TAB PO PRN (17:17)
[2021-12-18] MEDS ORDERED: Morphine 2 MG/ML VIAL SLOW IVP PRN (17:18)
[2021-12-18] MEDS ORDERED: Enoxaparin Sodium 40 MG/0.4 ML SYRINGE SC SCH (17:30)
[2021-12-18] MEDS: Atorvastatin Calcium 10 MG TAB PO SCH (19:40)
[2021-12-19] MEDS: Cyclobenzaprine 10 MG TAB PO SCH ×3 (08:15→21:26)
[2021-12-19] MEDS: ALPRAZolam 0.5 MG TAB PO SCH ×3 (08:15→21:26)
[2021-12-19] MEDS: Citalopram 20 MG TAB PO SCH (08:16)
[2021-12-19] MEDS: Enoxaparin Sodium 40 MG/0.4 ML SYRINGE SC SCH (08:16)
[2021-12-19] MEDS: Nicotine 21 MG PATCH TD SCH (08:16)
[2021-12-19] MEDS: metFORMIN XR 500 MG TAB PO SCH (08:19)
[2021-12-19] MEDS: Ketorolac Tromethamine 30 MG/ML VIAL IVP PRN ×2 (11:33→18:49)
[2021-12-19] MEDS ORDERED: Diltiazem HCl SR 60 mg Capsule PO SCH (18:45)
[2021-12-19] MEDS: Atorvastatin Calcium 10 MG TAB PO SCH (21:26)
[2021-12-20] MEDS: Diltiazem HCl SR 60 mg Capsule PO SCH ×2 (07:47→20:57)
[2021-12-20] MEDS: metFORMIN XR 500 MG TAB PO SCH (07:47)
[2021-12-20] MEDS: Citalopram 20 MG TAB PO SCH (07:49)
[2021-12-20] MEDS: ALPRAZolam 0.5 MG TAB PO SCH ×3 (07:49→20:58)
[2021-12-20] MEDS: Cyclobenzaprine 10 MG TAB PO SCH ×3 (07:49→20:58)
[2021-12-20] MEDS: Nicotine 21 MG PATCH TD SCH (07:50)
[2021-12-20] MEDS: Enoxaparin Sodium 40 MG/0.4 ML SYRINGE SC SCH (07:50)
[2021-12-20] MEDS: Ketorolac Tromethamine 30 MG/ML VIAL IVP PRN ×2 (09:56→15:55)
[2021-12-20] MEDS: Atorvastatin Calcium 10 MG TAB PO SCH (20:57)
[2021-12-21] MEDS: hydrALAZINE 20 MG/ML VIAL SLOW IVP PRN ×2 (00:01→04:24)
[2021-12-21] MEDS: Enoxaparin Sodium 40 MG/0.4 ML SYRINGE SC SCH (08:16)
[2021-12-21] MEDS: Citalopram 20 MG TAB PO SCH (08:16)
[2021-12-21] MEDS: Cyclobenzaprine 10 MG TAB PO SCH ×3 (08:17→20:50)
[2021-12-21] MEDS: metFORMIN XR 500 MG TAB PO SCH (08:17)
[2021-12-21] MEDS: Diltiazem HCl SR 60 mg Capsule PO SCH ×2 (08:17→20:50)
[2021-12-21] MEDS: ALPRAZolam 0.5 MG TAB PO SCH ×3 (08:17→20:50)
[2021-12-21] MEDS: Nicotine 21 MG PATCH TD SCH (08:18)
[2021-12-21] MEDS: Atorvastatin Calcium 10 MG TAB PO SCH (20:50)
[2021-12-22] MEDS: hydrALAZINE 20 MG/ML VIAL SLOW IVP PRN ×2 (02:53→17:48)
[2021-12-22] MEDS: Acetaminophen/Codeine 30-300mg Tablet PO PRN ×2 (03:12→16:41)
[2021-12-22] MEDS: Nicotine 21 MG PATCH TD SCH (09:16)
[2021-12-22] MEDS: metFORMIN XR 500 MG TAB PO SCH (09:18)
[2021-12-22] MEDS: ALPRAZolam 0.5 MG TAB PO SCH ×3 (09:18→20:39)
[2021-12-22] MEDS: Citalopram 20 MG TAB PO SCH (09:18)
[2021-12-22] MEDS: Diltiazem HCl SR 60 mg Capsule PO SCH ×2 (09:19→20:38)
[2021-12-22] MEDS: Cyclobenzaprine 10 MG TAB PO SCH ×3 (09:19→20:39)
[2021-12-22] MEDS: Enoxaparin Sodium 40 MG/0.4 ML SYRINGE SC SCH (09:19)
[2021-12-22 16:18] LABS: Anion Gap 13 mmol/L (10-20); BUN (Urea Nitrogen) 14 mg/dL (9.8-20.1); Calc. Creatinine Clearance 94 mL/min (70-130); Calcium 9.6 mg/dL (7.8-10.44); Carbon Dioxide 22 mmol/L (22-29); Chloride 109 mmol/L (98-107); Glucose 99 mg/dL (70-105); Potassium 3.8 mmol/L (3.5-5.1); Sodium 140 mmol/L (136-145)
[2021-12-22] MEDS: Atorvastatin Calcium 10 MG TAB PO SCH (20:39)
[2021-12-22] MEDS: Acetaminophen 325 MG TAB PO PRN (20:56)
[2021-12-23] MEDS ORDERED: Artificial Tear Sol 15 ML BOT EA EYE PRN (01:35)
[2021-12-23] MEDS: Enoxaparin Sodium 40 MG/0.4 ML SYRINGE SC SCH (08:18)
[2021-12-23] MEDS: Cyclobenzaprine 10 MG TAB PO SCH ×2 (08:18→14:57)
[2021-12-23] MEDS: ALPRAZolam 0.5 MG TAB PO SCH ×2 (08:21→14:57)
[2021-12-23] MEDS: Diltiazem HCl SR 60 mg Capsule PO SCH (08:21)
[2021-12-23] MEDS: Citalopram 20 MG TAB PO SCH (08:22)
[2021-12-23] MEDS: metFORMIN XR 500 MG TAB PO SCH (08:22)
[2021-12-23] MEDS: Nicotine 21 MG PATCH TD SCH (08:22)
[2021-12-23 08:31] VITALS: BP 158/70; TEMP 98.2
== END 2021-12-23 15:42 | DRG 563 ==
LOC: ERS 21:33 → T4-B 12-17 03:36 → OBSVTOIN 12-18 17:18
PROVIDERS: ADMIT Internal Medicine; ATTEND Internal Medicine
DX: S93.432A Sprain of tibiofibular ligament of left ankle, initial encounter (principal); Z68.41 Body mass index [BMI] 40.0-44.9, adult; Z20.822 Contact with and (suspected) exposure to COVID-19; I10 Essential (primary) hypertension; E11.9 Type 2 diabetes mellitus without complications; E78.5 Hyperlipidemia, unspecified; F32.A Depression, unspecified; E66.01 Morbid (severe) obesity due to excess calories; F41.9 Anxiety disorder, unspecified; W19.XXXA Unspecified fall, initial encounter; Z88.0 Allergy status to penicillin; Z79.899 Other long term (current) drug therapy; Z79.84 Long term (current) use of oral hypoglycemic drugs; Z90.49 Acquired absence of other specified parts of digestive tract
CPT/HCPCS: 36415; 36416; 80048; 80053; 81001; 85025; A9579; J0360; J1650; J1815; J1885; U0003; U0005

== ENCOUNTER 2022-02-06 15:27 | Inpatient (IN) | payer MEDICARE, OTHER ==
[2022-02-06 16:59] LABS: Hemoglobin 14.2 g/dL (12.0-16.0); Mean Corpuscular HGB CONC 33.2 g/dL (32.0-36.0); Mean Corpuscular Hemoglobin 32.1 pg (27.0-31.0); Mean Corpuscular Volume 96.7 fL (78.0-98.0); Mean Platelet Volume 7.6 fL (7.4-10.4); Platelet Count 355 thou/uL (130-400); RBC Distribution Width 12.5 % (11.5-14.5); Red Blood Cell (RBC) Count 4.43 mill/uL (4.20-5.40); White Blood Cell (WBC) Count 8.8 thou/uL (4.8-10.8)
[2022-02-06 17:16] LABS: Eosinophils 3 % (0-10); Lymphocytes 56 % (21-51); MDiff Complete? YES; Monocytes 4 % (0-10); Neutrophil 21 % (42-75); Platelet Morphology Comment Appears Adequate; RBC Morphology Normal; Reactive Lymphocytes 16 % (0-10)
[2022-02-06 17:24] LABS: ALT (SGPT) 23 U/L (8-55); AST (SGOT) 39 U/L (5-34); Albumin 4.6 g/dL (3.5-5.0); Alkaline Phosphatase 120 U/L (40-110); Anion Gap 12 mmol/L (10-20); BUN (Urea Nitrogen) 11 mg/dL (9.8-20.1); Bilirubin, Total 0.4 mg/dL (0.2-1.2); Calc. Creatinine Clearance 0 mL/min (70-130); Calcium 10.6 mg/dL (7.8-10.44); Carbon Dioxide 29 mmol/L (22-29); Chloride 102 mmol/L (98-107); Estimated GFR 64; Globulin 3.9 g/dL (2.4-3.5); Glucose 86 mg/dL (70-105); Potassium 4.1 mmol/L (3.5-5.1); Protein, Total 8.5 g/dL (6.0-8.3); Sodium 139 mmol/L (136-145)
[2022-02-06 17:35] LABS: Bacteria/HPF None Seen HPF (None Seen); Bilirubin Negative (Negative); Blood, Urine Negative (Negative); Clarity Clear (Clear); Glucose, Urine (Dipstick) Normal (Negative); Ketone, Urine Negative (Negative); Leukocyte Negative Leu/uL (Negative); Nitrite Negative (Negative); Protein, Urine (Dipstick) 30 mg/dL (Neg-Trace); RBC/HPF 0-3 HPF (0-3); Specific Gravity, Urine 1.014 (1.002-1.036); Squamous Epithelial 0-3 HPF (0-3); Urobilinogen Normal mg/dL (Less than 2); WBC/HPF 0-3 HPF (0-3); pH, Urine 5.5 (5.0-9.0)
[2022-02-06] MEDS ORDERED: Ondansetron ODT 4 MG TAB PO PRN (21:03)
[2022-02-06] MEDS ORDERED: Acetaminophen 650 MG Suppository PR PRN (21:03)
[2022-02-06] MEDS ORDERED: Ondansetron PF 4 MG/2 ML Vial IVP PRN (21:03)
[2022-02-06 22:25] VITALS: BMI 40.3
[2022-02-07 06:47] LABS: Anion Gap 15 mmol/L (10-20); BUN (Urea Nitrogen) 10 mg/dL (9.8-20.1); Calc. Creatinine Clearance 113 mL/min (70-130); Calcium 9.9 mg/dL (7.8-10.44); Carbon Dioxide 21 mmol/L (22-29); Chloride 108 mmol/L (98-107); Estimated GFR 71; Sodium 140 mmol/L (136-145)
[2022-02-07 06:50] LABS: Glucose 76 mg/dL (70-105)
[2022-02-07 07:54] LABS: Hemoglobin 14.2 g/dL (12.0-16.0); Mean Corpuscular HGB CONC 32.4 g/dL (32.0-36.0); Mean Corpuscular Hemoglobin 30.9 pg (27.0-31.0); Mean Corpuscular Volume 95.4 fL (78.0-98.0); Mean Platelet Volume 7.7 fL (7.4-10.4); Platelet Count 343 thou/uL (130-400); RBC Distribution Width 12.7 % (11.5-14.5); White Blood Cell (WBC) Count 9.8 thou/uL (4.8-10.8)
[2022-02-07] MEDS: Enoxaparin Sodium 40 MG/0.4 ML SYRINGE SC SCH (07:59)
[2022-02-07 08:34] LABS: Eosinophils 3 % (0-10); Lymphocytes 65 % (21-51); MDiff Complete? YES; Monocytes 9 % (0-10); Neutrophil 15 % (42-75); Platelet Morphology Comment Appears Adequate; RBC Morphology Normal; Reactive Lymphocytes 8 % (0-10)
[2022-02-07] MEDS ORDERED: Artificial Tear Sol 15 ML BOT EA EYE PRN (14:49)
[2022-02-07] MEDS: ALPRAZolam 0.5 MG TAB PO SCH ×2 (16:19→21:21)
[2022-02-07] MEDS: Gabapentin 300 MG CAP PO SCH ×2 (16:19→21:22)
[2022-02-07] MEDS ORDERED: NIFEdipine XL 60 MG TAB PO SCH (16:41)
[2022-02-07] MEDS: Cyclobenzaprine 10 MG TAB PO SCH ×2 (17:42→21:22)
[2022-02-07] MEDS: Atorvastatin Calcium 10 MG TAB PO SCH (21:22)
[2022-02-07] MEDS: Diltiazem HCl SR 60 mg Capsule PO SCH (21:22)
[2022-02-08] MEDS: hydrALAZINE 20 MG/ML VIAL SLOW IVP PRN ×2 (01:41→12:50)
[2022-02-08] MEDS: ALPRAZolam 0.5 MG TAB PO SCH ×3 (09:58→20:09)
[2022-02-08] MEDS: Enoxaparin Sodium 40 MG/0.4 ML SYRINGE SC SCH (09:59)
[2022-02-08] MEDS: Cyclobenzaprine 10 MG TAB PO SCH ×3 (09:59→20:10)
[2022-02-08] MEDS: Gabapentin 300 MG CAP PO SCH ×3 (09:59→20:09)
[2022-02-08] MEDS: Diltiazem HCl SR 60 mg Capsule PO SCH ×2 (09:59→20:10)
[2022-02-08] MEDS: Citalopram 20 MG TAB PO SCH (09:59)
[2022-02-08] MEDS: metFORMIN XR 500 MG TAB PO SCH (11:55)
[2022-02-08] MEDS: Atorvastatin Calcium 10 MG TAB PO SCH (20:09)
[2022-02-08] MEDS: Acetaminophen/Codeine 30-300mg Tablet PO PRN (22:08)
[2022-02-09] MEDS: Gabapentin 300 MG CAP PO SCH ×3 (09:22→20:22)
[2022-02-09] MEDS: Cyclobenzaprine 10 MG TAB PO SCH ×3 (09:22→20:22)
[2022-02-09] MEDS: ALPRAZolam 0.5 MG TAB PO SCH ×3 (09:22→20:22)
[2022-02-09] MEDS: metFORMIN XR 500 MG TAB PO SCH (09:23)
[2022-02-09] MEDS: Diltiazem HCl SR 60 mg Capsule PO SCH ×2 (09:23→20:23)
[2022-02-09] MEDS: Enoxaparin Sodium 40 MG/0.4 ML SYRINGE SC SCH (09:23)
[2022-02-09] MEDS: Citalopram 20 MG TAB PO SCH (09:23)
[2022-02-09] MEDS: Acetaminophen/Codeine 30-300mg Tablet PO PRN ×3 (09:27→21:59)
[2022-02-09] MEDS: Atorvastatin Calcium 10 MG TAB PO SCH (20:22)
[2022-02-10] MEDS: Enoxaparin Sodium 40 MG/0.4 ML SYRINGE SC SCH (09:17)
[2022-02-10] MEDS: ALPRAZolam 0.5 MG TAB PO SCH ×3 (09:17→20:48)
[2022-02-10] MEDS: Diltiazem HCl SR 60 mg Capsule PO SCH ×2 (09:18→20:48)
[2022-02-10] MEDS: metFORMIN XR 500 MG TAB PO SCH (09:18)
[2022-02-10] MEDS: Gabapentin 300 MG CAP PO SCH ×3 (09:19→20:48)
[2022-02-10] MEDS: Cyclobenzaprine 10 MG TAB PO SCH ×3 (09:20→20:48)
[2022-02-10] MEDS: Citalopram 20 MG TAB PO SCH (09:20)
[2022-02-10] MEDS: Acetaminophen/Codeine 30-300mg Tablet PO PRN ×2 (15:27→20:46)
[2022-02-10] MEDS: Atorvastatin Calcium 10 MG TAB PO SCH (20:48)
[2022-02-11] MEDS: Diltiazem HCl SR 60 mg Capsule PO SCH ×2 (09:57→21:58)
[2022-02-11] MEDS: Citalopram 20 MG TAB PO SCH (09:59)
[2022-02-11] MEDS: Gabapentin 300 MG CAP PO SCH ×3 (09:59→21:43)
[2022-02-11] MEDS: ALPRAZolam 0.5 MG TAB PO SCH ×3 (10:00→21:42)
[2022-02-11] MEDS: metFORMIN XR 500 MG TAB PO SCH (10:01)
[2022-02-11] MEDS: Enoxaparin Sodium 40 MG/0.4 ML SYRINGE SC SCH (10:02)
[2022-02-11] MEDS: Cyclobenzaprine 10 MG TAB PO SCH ×3 (11:01→21:45)
[2022-02-11] MEDS: hydrALAZINE 20 MG/ML VIAL SLOW IVP PRN (17:17)
[2022-02-11] MEDS: Atorvastatin Calcium 10 MG TAB PO SCH (21:45)
[2022-02-11] MEDS: Acetaminophen/Codeine 30-300mg Tablet PO PRN (23:46)
[2022-02-12] MEDS: hydrALAZINE 20 MG/ML VIAL SLOW IVP PRN (00:07)
[2022-02-12] MEDS: ALPRAZolam 0.5 MG TAB PO SCH ×3 (09:11→20:48)
[2022-02-12] MEDS: Citalopram 20 MG TAB PO SCH (09:12)
[2022-02-12] MEDS: metFORMIN XR 500 MG TAB PO SCH (09:47)
[2022-02-12] MEDS: Gabapentin 300 MG CAP PO SCH ×3 (09:48→20:47)
[2022-02-12] MEDS: Diltiazem HCl SR 60 mg Capsule PO SCH ×2 (09:49→20:46)
[2022-02-12] MEDS: Acetaminophen/Codeine 30-300mg Tablet PO PRN (09:50)
[2022-02-12] MEDS: Cyclobenzaprine 10 MG TAB PO SCH ×3 (09:50→20:48)
[2022-02-12] MEDS: Enoxaparin Sodium 40 MG/0.4 ML SYRINGE SC SCH (09:52)
[2022-02-12] MEDS: Acetaminophen 325 MG TAB PO PRN (20:46)
[2022-02-12] MEDS: Atorvastatin Calcium 10 MG TAB PO SCH (20:48)
[2022-02-13] MEDS: hydrALAZINE 20 MG/ML VIAL SLOW IVP PRN (06:08)
[2022-02-13] MEDS: ALPRAZolam 0.5 MG TAB PO SCH ×2 (09:23→17:43)
[2022-02-13] MEDS: Acetaminophen 325 MG TAB PO PRN (09:24)
[2022-02-13] MEDS: Gabapentin 300 MG CAP PO SCH ×4 (09:25→20:52)
[2022-02-13] MEDS: Enoxaparin Sodium 40 MG/0.4 ML SYRINGE SC SCH (09:26)
[2022-02-13] MEDS: Citalopram 20 MG TAB PO SCH (09:26)
[2022-02-13] MEDS: Cyclobenzaprine 10 MG TAB PO SCH ×3 (09:26→20:52)
[2022-02-13] MEDS: Diltiazem HCl SR 60 mg Capsule PO SCH ×2 (09:29→20:52)
[2022-02-13] MEDS: metFORMIN XR 500 MG TAB PO SCH (09:29)
[2022-02-13] MEDS: Atorvastatin Calcium 10 MG TAB PO SCH ×2 (20:52→21:00)
[2022-02-14] MEDS: Diltiazem HCl SR 60 mg Capsule PO SCH ×2 (09:55→20:06)
[2022-02-14] MEDS: Enoxaparin Sodium 40 MG/0.4 ML SYRINGE SC SCH (09:55)
[2022-02-14] MEDS: Gabapentin 300 MG CAP PO SCH ×3 (09:55→20:05)
[2022-02-14] MEDS: Cyclobenzaprine 10 MG TAB PO SCH ×3 (09:55→20:05)
[2022-02-14] MEDS: metFORMIN XR 500 MG TAB PO SCH (09:56)
[2022-02-14] MEDS: Citalopram 20 MG TAB PO SCH (09:56)
[2022-02-14] MEDS: Acetaminophen/Codeine 30-300mg Tablet PO PRN (15:37)
[2022-02-14] MEDS: Atorvastatin Calcium 10 MG TAB PO SCH (20:05)
[2022-02-15 07:28] LABS: Hemoglobin 14.8 g/dL (12.0-16.0); Platelet Count 297 thou/uL (130-400)
[2022-02-15] MEDS: Gabapentin 300 MG CAP PO SCH ×3 (08:03→20:17)
[2022-02-15] MEDS: Citalopram 20 MG TAB PO SCH (08:04)
[2022-02-15] MEDS: Cyclobenzaprine 10 MG TAB PO SCH (08:04)
[2022-02-15] MEDS: Enoxaparin Sodium 40 MG/0.4 ML SYRINGE SC SCH (08:04)
[2022-02-15] MEDS: metFORMIN XR 500 MG TAB PO SCH (09:04)
[2022-02-15] MEDS: Diltiazem HCl SR 60 mg Capsule PO SCH ×2 (09:04→20:16)
[2022-02-15] MEDS ORDERED: Bisacodyl 5 MG TAB PO PRN (11:08)
[2022-02-15] MEDS: Atorvastatin Calcium 10 MG TAB PO SCH (20:17)
[2022-02-16] MEDS: Citalopram 20 MG TAB PO SCH (08:51)
[2022-02-16] MEDS: metFORMIN XR 500 MG TAB PO SCH (08:51)
[2022-02-16] MEDS: Diltiazem HCl SR 60 mg Capsule PO SCH ×2 (08:51→20:36)
[2022-02-16] MEDS: Enoxaparin Sodium 40 MG/0.4 ML SYRINGE SC SCH (08:52)
[2022-02-16] MEDS: Gabapentin 300 MG CAP PO SCH ×3 (08:52→20:36)
[2022-02-16] MEDS: Acetaminophen/Codeine 30-300mg Tablet PO PRN (15:50)
[2022-02-16] MEDS: Atorvastatin Calcium 10 MG TAB PO SCH (20:37)
[2022-02-17] MEDS: Diltiazem HCl SR 60 mg Capsule PO SCH ×2 (08:15→21:03)
[2022-02-17] MEDS: Enoxaparin Sodium 40 MG/0.4 ML SYRINGE SC SCH (08:15)
[2022-02-17] MEDS: metFORMIN XR 500 MG TAB PO SCH (08:15)
[2022-02-17] MEDS: Citalopram 20 MG TAB PO SCH (08:17)
[2022-02-17] MEDS: Gabapentin 300 MG CAP PO SCH ×3 (08:17→21:03)
[2022-02-17] MEDS: Atorvastatin Calcium 10 MG TAB PO SCH (21:04)
[2022-02-17] MEDS: hydrALAZINE 20 MG/ML VIAL SLOW IVP PRN (21:08)
[2022-02-17] MEDS: Acetaminophen 325 MG TAB PO PRN (21:12)
[2022-02-18] MEDS: ALPRAZolam 0.5 MG TAB PO PRN (00:12)
[2022-02-18] MEDS: Citalopram 20 MG TAB PO SCH (09:16)
[2022-02-18] MEDS: Diltiazem HCl SR 60 mg Capsule PO SCH ×2 (09:16→20:28)
[2022-02-18] MEDS: Gabapentin 300 MG CAP PO SCH ×3 (09:16→20:28)
[2022-02-18] MEDS: metFORMIN XR 500 MG TAB PO SCH (09:16)
[2022-02-18] MEDS: Enoxaparin Sodium 40 MG/0.4 ML SYRINGE SC SCH (09:17)
[2022-02-18] MEDS: Acetaminophen/Codeine 30-300mg Tablet PO PRN ×2 (14:18→20:29)
[2022-02-18] MEDS: Atorvastatin Calcium 10 MG TAB PO SCH (20:29)
[2022-02-19 07:02] LABS: Anion Gap 12 mmol/L (10-20); BUN (Urea Nitrogen) 11 mg/dL (9.8-20.1); Calc. Creatinine Clearance 119 mL/min (70-130); Calcium 9.6 mg/dL (7.8-10.44); Carbon Dioxide 23 mmol/L (22-29); Chloride 107 mmol/L (98-107); Estimated GFR 76; Glucose 62 mg/dL (70-105); Potassium 3.3 mmol/L (3.5-5.1); Sodium 139 mmol/L (136-145)
[2022-02-19] MEDS: Gabapentin 300 MG CAP PO SCH ×3 (08:49→21:09)
[2022-02-19] MEDS: Diltiazem HCl SR 60 mg Capsule PO SCH ×2 (08:50→21:09)
[2022-02-19] MEDS: Citalopram 20 MG TAB PO SCH (08:50)
[2022-02-19] MEDS: Enoxaparin Sodium 40 MG/0.4 ML SYRINGE SC SCH (08:50)
[2022-02-19] MEDS: metFORMIN XR 500 MG TAB PO SCH (08:50)
[2022-02-19] MEDS: Acetaminophen/Codeine 30-300mg Tablet PO PRN ×2 (09:07→16:11)
[2022-02-19] MEDS: Potassium Chloride 20 MEQ TAB PO SCH (16:12)
[2022-02-19] MEDS: ALPRAZolam 0.5 MG TAB PO PRN (18:03)
[2022-02-19] MEDS: Cyclobenzaprine 10 MG TAB PO PRN (21:10)
[2022-02-19] MEDS: Atorvastatin Calcium 10 MG TAB PO SCH (21:10)
[2022-02-20] MEDS: metFORMIN XR 500 MG TAB PO SCH (09:08)
[2022-02-20] MEDS: Gabapentin 300 MG CAP PO SCH ×3 (09:09→20:34)
[2022-02-20] MEDS: Citalopram 20 MG TAB PO SCH (09:09)
[2022-02-20] MEDS: Potassium Chloride 20 MEQ TAB PO SCH (09:09)
[2022-02-20] MEDS: Diltiazem HCl SR 60 mg Capsule PO SCH ×2 (09:10→20:35)
[2022-02-20] MEDS: Enoxaparin Sodium 40 MG/0.4 ML SYRINGE SC SCH (09:10)
[2022-02-20] MEDS: Atorvastatin Calcium 10 MG TAB PO SCH (20:35)
[2022-02-20] MEDS: Acetaminophen/Codeine 30-300mg Tablet PO PRN (20:35)
[2022-02-20] MEDS: Cyclobenzaprine 10 MG TAB PO PRN (20:35)
[2022-02-20] MEDS: ALPRAZolam 0.5 MG TAB PO PRN (20:36)
[2022-02-21] MEDS: Diltiazem HCl SR 60 mg Capsule PO SCH ×2 (08:55→21:04)
[2022-02-21] MEDS: Gabapentin 300 MG CAP PO SCH ×3 (08:55→21:04)
[2022-02-21] MEDS: Enoxaparin Sodium 40 MG/0.4 ML SYRINGE SC SCH (08:56)
[2022-02-21] MEDS: metFORMIN XR 500 MG TAB PO SCH (08:56)
[2022-02-21] MEDS: Citalopram 20 MG TAB PO SCH (08:56)
[2022-02-21] MEDS: Acetaminophen/Codeine 30-300mg Tablet PO PRN ×2 (09:01→21:04)
[2022-02-21] MEDS: Cyclobenzaprine 10 MG TAB PO PRN ×2 (09:01→21:04)
[2022-02-21] MEDS: ALPRAZolam 0.5 MG TAB PO PRN (16:04)
[2022-02-21] MEDS: Atorvastatin Calcium 10 MG TAB PO SCH (21:04)
[2022-02-22] MEDS: ALPRAZolam 0.5 MG TAB PO PRN ×2 (00:13→18:11)
[2022-02-22] MEDS: Enoxaparin Sodium 40 MG/0.4 ML SYRINGE SC SCH (08:50)
[2022-02-22] MEDS: metFORMIN XR 500 MG TAB PO SCH (08:50)
[2022-02-22] MEDS: Diltiazem HCl SR 60 mg Capsule PO SCH ×2 (08:50→21:02)
[2022-02-22] MEDS: Citalopram 20 MG TAB PO SCH (08:50)
[2022-02-22] MEDS: Gabapentin 300 MG CAP PO SCH ×3 (09:23→21:00)
[2022-02-22] MEDS: Acetaminophen/Codeine 30-300mg Tablet PO PRN (21:01)
[2022-02-22] MEDS: Atorvastatin Calcium 10 MG TAB PO SCH (21:01)
[2022-02-22] MEDS: Cyclobenzaprine 10 MG TAB PO PRN (21:01)
[2022-02-23 06:11] LABS: Hemoglobin 13.9 g/dL (12.0-16.0); Platelet Count 380 thou/uL (130-400)
[2022-02-23] MEDS: Citalopram 20 MG TAB PO SCH (10:03)
[2022-02-23] MEDS: ALPRAZolam 0.5 MG TAB PO PRN (10:04)
[2022-02-23] MEDS: Enoxaparin Sodium 40 MG/0.4 ML SYRINGE SC SCH (10:04)
[2022-02-23] MEDS: Gabapentin 300 MG CAP PO SCH ×3 (10:04→20:42)
[2022-02-23] MEDS: metFORMIN XR 500 MG TAB PO SCH (10:05)
[2022-02-23] MEDS: Diltiazem HCl SR 60 mg Capsule PO SCH ×2 (10:07→20:42)
[2022-02-23] MEDS: Acetaminophen/Codeine 30-300mg Tablet PO PRN (13:31)
[2022-02-23] MEDS: Atorvastatin Calcium 10 MG TAB PO SCH (20:42)
[2022-02-24] MEDS: ALPRAZolam 0.5 MG TAB PO PRN (01:24)
[2022-02-24 08:43] VITALS: TEMP 97.8
[2022-02-24] MEDS: Acetaminophen/Codeine 30-300mg Tablet PO PRN ×2 (09:09→14:21)
[2022-02-24] MEDS: Enoxaparin Sodium 40 MG/0.4 ML SYRINGE SC SCH (09:10)
[2022-02-24] MEDS: Citalopram 20 MG TAB PO SCH (09:10)
[2022-02-24] MEDS: metFORMIN XR 500 MG TAB PO SCH (09:10)
[2022-02-24] MEDS: Diltiazem HCl SR 60 mg Capsule PO SCH (09:19)
[2022-02-24] MEDS: Gabapentin 300 MG CAP PO SCH ×2 (09:22→14:21)
[2022-02-24 13:39] VITALS: BP 148/84
== END 2022-02-24 15:27 | DRG 552 ==
LOC: ERS 15:27 → T4-B 19:55
PROVIDERS: ADMIT Family Medicine; ATTEND Family Medicine
DX: M48.062 Spinal stenosis, lumbar region with neurogenic claudication (principal); Z68.41 Body mass index [BMI] 40.0-44.9, adult; Z20.822 Contact with and (suspected) exposure to COVID-19; M48.07 Spinal stenosis, lumbosacral region; E78.5 Hyperlipidemia, unspecified; F41.9 Anxiety disorder, unspecified; F32.A Depression, unspecified; E66.01 Morbid (severe) obesity due to excess calories; E78.00 Pure hypercholesterolemia, unspecified; Z96.652 Presence of left artificial knee joint; I10 Essential (primary) hypertension; E11.9 Type 2 diabetes mellitus without complications; M51.34 Other intervertebral disc degeneration, thoracic region; F17.210 Nicotine dependence, cigarettes, uncomplicated; Z90.49 Acquired absence of other specified parts of digestive tract; Z88.0 Allergy status to penicillin; Z79.899 Other long term (current) drug therapy; Z79.84 Long term (current) use of oral hypoglycemic drugs
CPT/HCPCS: 36415; 51701; 70450; 71045; 72146; 72148; 72170; 80048; 80053; 81003; 81015; 82565; 83880; 84132; 84484; 85014; 85018; 85025; 85049; 87086; 93005; 93970; J0360; J1650; U0003; U0005

== ENCOUNTER 2022-12-20 09:14 | Outpatient (CLI) | payer MEDICARE ==
[~2022-12-20 09:14] MED LIST: Iopamidol 370 76% 100 ML VIAL ONE
== END 2022-12-20 09:15 | disposition home or self-care (01) ==
LOC: CT 09:14
PROVIDERS: ATTEND Internal Medicine Nephrology
DX: E26.01 Conn's syndrome (principal); I15.9 Secondary hypertension, unspecified
CPT/HCPCS: 74170; 82565; Q9967

== ENCOUNTER 2023-03-15 07:51 | Outpatient (CLI) | payer MEDICARE | END 2023-03-15 07:52 | disposition home or self-care (01) | LOC: BICMAMMO 07:51 | DX: Z13.820 Encounter for screening for osteoporosis (principal); M85.851 Other specified disorders of bone density and structure, right thigh; M85.852 Other specified disorders of bone density and structure, left thigh; Z78.0 Asymptomatic menopausal state | CPT/HCPCS: 77080 ==